=== PATIENT | female | born 2000 | race Caucasian/White ===

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

== ENCOUNTER 2022-03-29 20:09 | Emergency (ER) | payer OTHER ==
[2022-03-29] MEDS ORDERED: SODIUM CHLORIDE 0.9% 1,000 ML IV STA (20:49)
--- NOTE | 2022-03-29 20:56 | ED ---
Female Urogenital HPI - General Chief complaint: Vaginal Bleeding Stated complaint: Vag bleed Time Seen by Provider: 03/29/22 20:45 Source: patient, RN notes reviewed Mode of arrival: ambulatory Limitations: no limitations - History of Present Illness Initial comments: This is a pleasant 21-year-old female who presents to emergency department complaining of vaginal bleeding. Patient states this started a few days ago. She states it heavier than her normal menses. She states she is passing large clots. She was seen at [facility] yesterday and had blood work done. Patient states the bleeding is now worse than yesterday. She is d escribing some mild cramping in the pelvis, otherwise no significant pain. Patient states she had testing done there yesterday which was negative. Patient states she also received an injection of a hormone to stop the bleeding. No headache, no fever or chills, no changes in vision or hearing, no sore throat or difficulty with speech, no neck pain, no chest pain or shortness of breath, no abdominal pain, no nausea or vomiting, no changes in urination or bowel movements, no numbness or tingling, no extremity pain, no skin rashes or lesions. Past medical, surgical, social, and family history reviewed. Patient has no symptoms of syncope or presyncope. MD Complaint: vaginal bleeding - Related Data Home Medications Medication Instructions Recorded Confirmed No Known Home Medications 11/24/21 11/26/21 Allergies Allergy/AdvReac Type Severity Reaction Status Date / Time adhesive AdvReac Itching Verified 03/29/22 20:44 Review of Systems ROS Statement: Those systems with pertinent positive or pertinent negative responses have been documented in the HPI. ROS Other: All systems not noted in ROS Statement are negative. Past Medical History Past Medical History: GERD/Reflux Additional Past Medical History / Comment(s): CURRENT: ABD PAIN. History of Any Multi-Drug Resistant Organisms: None Reported Past Surgical History: No Surgical Hx Reported Additional Past Surgical History / Comment(s): WISDOM TEETH REMOVED Additional Past Anesthesia/Blood Transfusion Reaction / Comment(s): NEVER HAD GENERAL ANESTHIA Past Psychological History: Anxiety, Depression Smoking Status: Never smoker Past Alcohol Use History: None Reported Past Drug Use History: None Reported - Past Family History Mother Family Medical History: No Reported History General Exam Limitations: no limitations General appearance: alert, in no apparent distress Head exam: Present: atraumatic, normocephalic, normal inspection Eye exam: Present: normal appearance, PERRL, EOMI. Absent: scleral icterus, conjunctival injection, periorbital swelling ENT exam: Present: normal exam, mucous membranes moist Neck exam: Present: normal inspection. Absent: tenderness, meningismus, lymphadenopathy Respiratory exam: Present: normal lung sounds bilaterally. Absent: respiratory distress, wheezes, rales, rhonchi, stridor Cardiovascular Exam: Present: regular rate, normal rhythm, normal heart sounds. Absent: systolic murmur, diastolic murmur, rubs, gallop, clicks GI/Abdominal exam: Present: soft, normal bowel sounds. Absent: distended, tenderness, guarding, rebound, rigid Extremities exam: Present: normal inspection, full ROM, normal capillary refill. Absent: tenderness, pedal edema, joint swelling, calf tenderness Back exam: Present: normal inspection Neurological exam: Present: alert, oriented X3, CN II-XII intact Psychiatric exam: Present: normal affect, normal mood Skin exam: Present: warm, dry, intact, normal color. Absent: rash Course Vital Signs 03/29/22 20:41 Temperature 98.2 F Pulse Rate 86 Respiratory 20 Rate Blood Pressure 122/84 O2 Sat by Pulse 99 Oximetry - Reevaluation(s) Reevaluation #1: 03/29/22 22:53 Patient is reevaluated and is hemodynamic stable. Essentially has no complaints. Medical Decision Making - Medical Decision Making Hemodynamically stable 21-year-old female presents for reevaluation of vaginal bleeding. It sounds like she had an injection of medroxyprogesterone at [facility] yesterday. Predictably, bleeding is worse today. We'll order a general lab work and a pelvic ultrasound. Prexy testing. Ultrasound shows a thickened endometrium and a left ovarian cyst. Right ovary was not noted. Good arterial flow to the left ovary. Given the patient's symptomology of cramping. I think this is inspected after having a dose of medroxyprogesterone. All findings discussed with the patient. Treatment plan discussed. Patient was told to return to the ER for any signs or symptoms worsen. Told to return immediately if any other problems arise. All questions answered. Treatment plan discussed. Patient in agreement Every effort has been made to ensure accuracy of this dictation. However, due to the limitations of electronic medical records and dictation devices, errors in charting still occur. [employer] Dr. Landin - Lab Data Result diagrams: 03/29/22 21:48 03/29/22 21:48 Lab Results 03/29/22 03/29/22 Range/Units 21:48 21:48 WBC 8.3 (4.0-11.0) k/uL RBC 3.84 (3.80-5.40) m/uL Hgb 11.9 (11.4-16.0) gm/dL Hct 33.9 L (34.0-46.0) % MCV 88.2 (80.0-100.0) fL MCH 31.0 (25.0-35.0) pg MCHC 35.1 (31.0-37.0) g/dL RDW 12.6 (11.5-15.5) % Plt Count 268 (150-450) k/uL MPV 8.8 Neutrophils % 70 % Lymphocytes % 21 % Monocytes % 7 % Eosinophils % 0 % Basophils % 0 % Neutrophils # 5.8 (1.3-7.7) k/uL Lymphocytes # 1.7 (1.0-4.8) k/uL Monocytes # 0.6 (0-1.0) k/uL Eosinophils # 0.0 (0-0.7) k/uL Basophils # 0.0 (0-0.2) k/uL Sodium 138 (137-145) mmol/L Potassium 4.1 (3.5-5.1) mmol/L Chloride 104 (98-107) mmol/L Carbon Dioxide 23 (22-30) mmol/L Anion Gap 11 mmol/L BUN 10 (7-17) mg/dL Creatinine 1.02 (0.52-1.04) mg/dL Est GFR (CKD-EPI)AfAm >90 (>60 ml/min/1.73 sqM) Est GFR (CKD-EPI)NonAf 80 (>60 ml/min/1.73 sqM) Glucose 85 (74-99) mg/dL Calcium 8.9 (8.4-10.2) mg/dL Total Bilirubin 1.7 H (0.2-1.3) mg/dL AST 28 (14-36) U/L ALT 16 (4-34) U/L Alkaline Phosphatase 60 (38-126) U/L Total Protein 5.8 L (6.3-8.2) g/dL Albumin 4.0 (3.5-5.0) g/dL HCG, Qual Not Detected Disposition Clinical Impression: Menorrhagia, Ovarian cyst, left Disposition: HOME SELF-CARE Condition: Good Instructions (If sedation given, give patient instructions): Menorrhagia (ED), Ovarian Cyst (ED) Additional Instructions: Follow-up with your regular physician as directed. Return to the ER immediately if any symptoms worsen, new symptoms arise, or any other problems develop. Is patient prescribed a controlled substance at d/c from ED?: No Referrals: Mariluz Shah MD [STAFF PHYSICIAN] - As Soon As Possible Time of Disposition: 22:54
--- NOTE | 2022-03-29 21:40 | US ---
EXAMINATION TYPE: US transvaginal DATE OF EXAM: 03/29/2022 COMPARISON: NONE CLINICAL HISTORY: Dysfunctional uterine bleeding. Abnormally heavy period, patient on control TECHNIQUE: Transvaginal ER exam Date of LMP: 03/25/2022 EXAM MEASUREMENTS: Uterus: 7.9 x 3.6 x 3.9 cm Endometrial Stripe: 1.0 cm Right Ovary: not seen Left Ovary: 5.4 x 4.4 x 4.6 cm 1. Uterus: anteverted 2. Endometrium: thickened 3. Right Ovary: not seen 4. Left Ovary: 4.6 x 4.0 x 3.8cm cyst Spectral, color and waveform doppler imaging shows good arterial flow within the left ovary, unable to obtain venous flow within the left ovary. 5. Bilateral Adnexa: wnl 6. Posterior cul-de-sac: free fluid IMPRESSION: There is large cyst on the left ovary. No solid adnexal mass. Right ovary not seen. No sign of ovaria n torsion. Mild free fluid in the pelvis.
[2022-03-29 22:20] LABS: Basophils % (A) 0 %; Eosinophils % (A) 0 %; HCT 33.9 % (34.0-46.0); HGB 11.9 gm/dL (11.4-16.0); Lymphocytes # (A) 1.7 k/uL (1.0-4.8); Lymphocytes % (A) 21 %; MCHC 35.1 g/dL (31.0-37.0); MCV 88.2 fL (80.0-100.0); Mean Platelet Volume 8.8; Monocytes # (A) 0.6 k/uL (0-1.0); Monocytes % (A) 7 %; Neutrophils # (A) 5.8 k/uL (1.3-7.7); Neutrophils % (A) 70 %; Platelet Count 268 k/uL (150-450); RBC 3.84 m/uL (3.80-5.40); RDW 12.6 % (11.5-15.5); WBC 8.3 k/uL (4.0-11.0)
[2022-03-29 22:27] LABS: HCG,Qualitative Serum Not Detected
[2022-03-29 22:31] LABS: ALT 16 U/L (4-34); AST 28 U/L (14-36); African American GFR (CKD) >90 (>60 ml/min/1.73 sqM); Alkaline Phosphatase 60 U/L (38-126); Anion Gap 11 mmol/L; Blood Urea Nitrogen 10 mg/dL (7-17); Calcium 8.9 mg/dL (8.4-10.2); Carbon Dioxide 23 mmol/L (22-30); Chloride 104 mmol/L (98-107); Glucose 85 mg/dL (74-99); Non-African American GFR(CKD) 80 (>60 ml/min/1.73 sqM); Potassium 4.1 mmol/L (3.5-5.1); Sodium 138 mmol/L (137-145); Total Bilirubin 1.7 mg/dL (0.2-1.3); Total Protein 5.8 g/dL (6.3-8.2)
[2022-03-29 23:05] VITALS: BP 118/65; PULSE 79; RESP 18; TEMP 97.4
== END 2022-03-29 23:03 | disposition home or self-care (01) ==
LOC: EC 20:09 → SUPCPDRO 20:09 → EC 23:03
DX: N92.0 Excessive and frequent menstruation with regular cycle (principal); N83.202 Unspecified ovarian cyst, left side; K21.9 Gastro-esophageal reflux disease without esophagitis; Z91.048 Other nonmedicinal substance allergy status
CPT/HCPCS: 36415; 76830; 80053; 84443; 84703; 85025; 93976; 99284

== ENCOUNTER 2022-05-12 10:42 | Emergency (ER) | payer OTHER ==
[2022-05-12 10:49] VITALS: RESP 18; TEMP 98.5
--- NOTE | 2022-05-12 11:22 | ED ---
Female Urogenital HPI - General Chief complaint: Vaginal Bleeding Stated complaint: revisit -vaginal bleeding Time Seen by Provider: 05/12/22 10:44 Source: patient, RN notes reviewed Mode of arrival: ambulatory Limitations: no limitations - History of Present Illness Initial comments: This is a 21-year-old female who presents to the emergency department for vaginal bleeding. States that she has had heavy bleeding over the last 6 weeks. Prior to this, she never had problems with her periods. She saw Jayro Munoz shaper hand at [place] [employer] [facility] today who instructed her to come to the emergency department for a D&C according to the patient. She was evaluated here on 03/29/2022 for vaginal bleeding and pelvic pain/cramping, and the day prior to that had a shot of medroxyprogesterone at [facility]. She states that this worked for 1-2 days and the bleeding then returned, however during her visit on 03/29, she said that it made the bleeding worse. She is currently wearing a pad and tampon at the same time and changing them more than once an hour. She did have blood work done a month ago at her RADAR ENGINEER's office and was told that her hemoglobin levels were very low, and she has been taking iron since. She did have testing on her thyroid as well, which she was told was normal. She is unsure what other testing may have been done. Additionally, she had an ultrasound at the coordinator of genetic services's office today, which she was told was n ormal. She started the NuvaRing when her symptoms began, and she had this removed earlier today at her RADAR ENGINEER's office, and she states that blood went everywhere, which was the largest reason she came to the emergency department today. In addition to the NuvaRing, she was on a ten-day course of pr ogesterone, which she states was also not helpful. She has mild left sided abdominal pain and associated nausea. Also states that she feels fairly weak. With regards to her family history, she states that her mom never had a period, and is unsure why. She is unaware of any other family history. Denies any fevers, chills, sore throat, cough, dyspnea, chest pain, palpitations, vomiting, diarrhea, back pain, or headaches. MD Complaint: vaginal bleeding Onset/Timin -: month(s) Patient : No - Related Data Home Medications Medication Instructions Recorded Confirmed Cariprazine HCl [Vraylar] 1.5 mg PO DAILY@1130 05/12/22 05/12/22 Ferrous Sulfate [Iron (65 MG 325 mg PO DAILY@1130 05/12/22 05/12/22 Elemental)] Multivitamins, Thera [Multivitamin 1 tab PO DAILY@1130 05/12/22 05/12/22 (formulary)] norgestimate-ethinyl estradioL 1 tab PO DIRECTED 05/12/22 05/12/22 [Sprintec 28 Day Tablet] Previous Rx's Medication Instructions Recorded Tranexamic Acid 1,300 mg PO TID 5 Days #30 tablet 05/12/22 Allergies Allergy/AdvReac Type Severity Reaction Status Date / Time adhesive AdvReac Itching Verified 05/12/22 11:44 Review of Systems ROS Statement: Those systems with pertinent positive or pertinent negative responses have been documented in the HPI. ROS Other: All systems not noted in ROS Statement are negative. Past Medical History Past Medical History: GERD/Reflux Additional Past Medical History / Comment(s): CURRENT: ABD PAIN. History of Any Multi-Drug Resistant Organisms: None Reported Past Surgical History: No Surgical Hx Reported Additional Past Surgical History / Comment(s): WISDOM TEETH REMOVED Additional Past Anesthesia/Blood Transfusion Reaction / Comment(s): NEVER HAD GENERAL ANESTHIA Past Psychological History: Anxiety, Depression Smoking Status: Never smoker Past Alcohol Use History: None Reported Past Drug Use History: None Reported - Past Family History Mother Family Medical History: No Reported History General Exam Limitations: no limitations General appearance: alert, in no apparent distress Head exam: Present: atraumatic, normocephalic, normal inspection Respiratory exam: Present: normal lung sounds bilaterally. Absent: respiratory distress, wheezes, rales, rhonchi, stridor Cardiovascular Exam: Present: regular rate, normal rhythm, normal heart sounds. Absent: systolic murmur, diastolic murmur, rubs, gallop, clicks GI/Abdominal exam: Present: soft, tenderness (mild left mid abdomen), normal bowel sounds. Absent: distended, guarding, rebound, rigid Neurological exam: Present: alert, oriented X3, CN II-XII intact Psychiatric exam: Present: normal affect, normal mood Skin exam: Present: warm, dry, intact, normal color. Absent: rash Course Vital Signs 05/12/22 05/12/22 05/12/22 10:47 16:58 17:11 Temperature 98.5 F Pulse Rate 99 75 72 Respiratory 18 18 18 Rate Blood Pressure 125/77 121/73 130/82 O2 Sat by Pulse 100 100 99 Oximetry Medical Decision Making - Medical Decision Making This is a 21 year old female who presents to the emergency department for vaginal bleeding. Lab work obtained and found to be largely nonactionable. Her hemoglobin was slightly low at 10.6. Urine test negative. Urinalysis negative for any signs of infection. Transvaginal ultrasound obtained, and on my interpretation I am unable to identify any uterine masses or right ovarian cysts. I was unable to visualize the left ovary. I spoke with Dr. Frye, on- call RADAR ENGINEER, who does not believe that proceeding with a D&C at this time is appropriate given the patient's age and the fact that she is stable. Dr. Frye is also not familiar with this patient. Jayro Munoz, the patient's shaper hand also spoke with Dr. Frye, and is agreeable to avoiding a D&C at this time. I am also in agreement with this due to the patient's age and the fact that she is hemodynamically stable. Given that she has tried both the ring and progeste noam, discussed that we can try Lysteda. She was advised that this is not a hormone, and does pose a risk for blood clots which can lead to a heart attack and stroke. She does express understanding and is willing to accept these risks. I did advise that if she develops any chest pain, shortness of breath, or swelling in any of the extremities, she should stop this immediately and return to the emergency department. I did also order additional blood work to look at her hormone levels, which I advised will not be back today. She will need to call the hospital in the next couple of days to follow-up on these results. Advised Motrin and Tylenol as needed for any pain relief. She will follow up with her RADAR ENGINEER this week. She was given Dr. Frye's information as well if she is unable to see Dr. Inman in a timely manner. Return precautions reviewed in depth, the patient is instructed to return to the emergency department with any new, worsening, or concerning symptoms. Patient verbalized understanding. This case was discussed in detail with the attending ED physician. Presentation, findings, and treatment plan discussed in detail as well. - Lab Data Result diagrams: 05/12/22 11:11 05/12/22 11:11 Lab Results 05/12/22 05/12/22 05/12/22 Range/Units 11:11 11:11 11:11 WBC 5.6 (4.0-11.0) k/uL RBC 3.89 (3.80-5.40) m/uL Hgb 10.6 L (11.4-16.0) gm/dL Hct 32.4 L (34.0-46.0) % MCV 83.3 (80.0-100.0) fL MCH 27.2 (25.0-35.0) pg MCHC 32.7 (31.0-37.0) g/dL RDW 13.3 (11.5-15.5) % Plt Count 289 (150-450) k/uL MPV 8.6 Neutrophils % 69 % Lymphocytes % 22 % Monocytes % 6 % Eosinophils % 1 % Basophils % 0 % Neutrophils # 3.8 (1.3-7.7) k/uL Lymphocytes # 1.2 (1.0-4.8) k/uL Monocytes # 0.4 (0-1.0) k/uL Eosinophils # 0.0 (0-0.7) k/uL Basophils # 0.0 (0-0.2) k/uL Hypochromasia Marked Poikilocytosis Slight PT 10.7 (9.0-12.0) sec INR 1.0 (<1.2) APTT 23.7 (22.0-30.0) sec Sodium (137-145) mmol/L Potassium (3.5-5.1) mmol/L Chloride (98-107) mmol/L Carbon Dioxide (22-30) mmol/L Anion Gap mmol/L BUN (7-17) mg/dL Creatinine (0.52-1.04) mg/dL Est GFR (CKD-EPI)AfAm (>60 ml/min/1.73 sqM) Est GFR (CKD-EPI)NonAf (>60 ml/min/1.73 sqM) Glucose (74-99) mg/dL Calcium (8.4-10.2) mg/dL Total Bilirubin (0.2-1.3) mg/dL AST (14-36) U/L ALT (4-34) U/L Alkaline Phosphatase (38-126) U/L Total Protein (6.3-8.2) g/dL Albumin (3.5-5.0) g/dL TSH (0.465-4.680) mIU/L Cortisol ug/dL Urine Color Yellow Urine Appearance Clear (Clear) Urine pH 6.0 (5.0-8.0) Ur Specific [place] 1.017 (1.001-1.035) Urine Protein Negative (Negative) Urine Glucose (UA) Negative (Negative) Urine Ketones Negative (Negative) Urine Blood Large H (Negative) Urine Nitrite Negative (Negative) Urine Bilirubin Negative (Negative) Urine Urobilinogen <2.0 (<2.0) mg/dL Ur Leukocyte Esterase Trace H (Negative) Urine RBC 15 H (0-5) /hpf Urine WBC 10 H (0-5) /hpf Ur Squamous Epith Cells 3 (0-4) /hpf Urine Bacteria Rare H (None) /hpf Urine Mucus Occasional H (None) /hpf Urine HCG, Qual (Not Detectd) Blood Type Blood Type Recheck Bld Type Recheck Status Antibody Screen Spec Expiration Date 05/12/22 05/12/22 05/12/22 Range/Units 11:11 11:11 11:11 WBC (4.0-11.0) k/uL RBC (3.80-5.40) m/uL Hgb (11.4-16.0) gm/dL Hct (34.0-46.0) % MCV (80.0-100.0) fL MCH (25.0-35.0) pg MCHC (31.0-37.0) g/dL RDW (11.5-15.5) % Plt Count (150-450) k/uL MPV Neutrophils % % Lymphocytes % % Monocytes % % Eosinophils % % Basophils % % Neutrophils # (1.3-7.7) k/uL Lymphocytes # (1.0-4.8) k/uL Monocytes # (0-1.0) k/uL Eosinophils # (0-0.7) k/uL Basophils # (0-0.2) k/uL Hypochromasia Poikilocytosis PT (9.0-12.0) sec INR (<1.2) APTT (22.0-30.0) sec Sodium 138 (137-145) mmol/L Potassium 4.3 (3.5-5.1) mmol/L Chloride 109 H (98-107) mmol/L Carbon Dioxide 24 (22-30) mmol/L Anion Gap 5 mmol/L BUN 8 (7-17) mg/dL Creatinine 0.67 (0.52-1.04) mg/dL Est GFR (CKD-EPI)AfAm >90 (>60 ml/min/1.73 sqM) Est GFR (CKD-EPI)NonAf >90 (>60 ml/min/1.73 sqM) Glucose 78 (74-99) mg/dL Calcium 8.7 (8.4-10.2) mg/dL Total Bilirubin 1.7 H (0.2-1.3) mg/dL AST 18 (14-36) U/L ALT 12 (4-34) U/L Alkaline Phosphatase 38 (38-126) U/L Total Protein 5.9 L (6.3-8.2) g/dL Albumin 3.8 (3.5-5.0) g/dL TSH 0.961 (0.465-4.680) mIU/L Cortisol ug/dL Urine Color Urine Appearance (Clear) Urine pH (5.0-8.0) Ur Specific [place] (1.001-1.035) Urine Protein (Negative) Urine Glucose (UA) (Negative) Urine Ketones (Negative) Urine Blood (Negative) Urine Nitrite (Negative) Urine Bilirubin (Negative) Urine Urobilinogen (<2.0) mg/dL Ur Leukocyte Esterase (Negative) Urine RBC (0-5) /hpf Urine WBC (0-5) /hpf Ur Squamous Epith Cells (0-4) /hpf Urine Bacteria (None) /hpf Urine Mucus (None) /hpf Urine HCG, Qual Not Detected (Not Detectd) Blood Type B Positive Blood Type Recheck B Pos Bld Type Recheck Status No Antibody Screen NEGATIVE Spec Expiration Date 05/15/2022 - 231005/12/22 Range/Units 11:11 WBC (4.0-11.0) k/uL RBC (3.80-5.40) m/uL Hgb (11.4-16.0) gm/dL Hct (34.0-46.0) % MCV (80.0-100.0) fL MCH (25.0-35.0) pg MCHC (31.0-37.0) g/dL RDW (11.5-15.5) % Plt Count (150-450) k/uL MPV Neutrophils % % Lymphocytes % % Monocytes % % Eosinophils % % Basophils % % Neutrophils # (1.3-7.7) k/uL Lymphocytes # (1.0-4.8) k/uL Monocytes # (0-1.0) k/uL Eosinophils # (0-0.7) k/uL Basophils # (0-0.2) k/uL Hypochromasia Poikilocytosis PT (9.0-12.0) sec INR (<1.2) APTT (22.0-30.0) sec Sodium (137-145) mmol/L Potassium (3.5-5.1) mmol/L Chloride (98-107) mmol/L Carbon Dioxide (22-30) mmol/L Anion Gap mmol/L BUN (7-17) mg/dL Creatinine (0.52-1.04) mg/dL Est GFR (CKD-EPI)AfAm (>60 ml/min/1.73 sqM) Est GFR (CKD-EPI)NonAf (>60 ml/min/1.73 sqM) Glucose (74-99) mg/dL Calcium (8.4-10.2) mg/dL Total Bilirubin (0.2-1.3) mg/dL AST (14-36) U/L ALT (4-34) U/L Alkaline Phosphatase (38-126) U/L Total Protein (6.3-8.2) g/dL Albumin (3.5-5.0) g/dL TSH (0.465-4.680) mIU/L Cortisol 10 ug/dL Urine Color Urine Appearance (Clear) Urine pH (5.0-8.0) Ur Specific [place] (1.001-1.035) Urine Protein (Negative) Urine Glucose (UA) (Negative) Urine Ketones (Negative) Urine Blood (Negative) Urine Nitrite (Negative) Urine Bilirubin (Negative) Urine Urobilinogen (<2.0) mg/dL Ur Leukocyte Esterase (Negative) Urine RBC (0-5) /hpf Urine WBC (0-5) /hpf Ur Squamous Epith Cells (0-4) /hpf Urine Bacteria (None) /hpf Urine Mucus (None) /hpf Urine HCG, Qual (Not Detectd) Blood Type Blood Type Recheck Bld Type Recheck Status Antibody Screen Spec Expiration Date - Radiology Data Radiology results: report reviewed, image reviewed Disposition Clinical Impression: Dysfunctional uterine bleeding Disposition: HOME SELF-CARE Instructions (If sedation given, give patient instructions): Abnormal (Dysfunctional) Uterine Bleeding (ED), Menorrhagia (ED) Additional Instructions: Return to the emergency department with any new, worsening, or concerning symptoms. Take the tranexamic acid as prescribed for 5 days. The brand name for this is Lysteda. Stop taking this immediately if you develop swelling in the extremities, chest pain, or shortness of breath. Please follow-up with your RADAR ENGINEER in the next couple of days. I listed the RADAR ENGINEER here down below if you are unable to follow up with Dr. Inman in a timely manner. Follow up with your primary care provider in 1-2 days. Prescriptions: Tranexamic Acid 1,300 mg PO TID 5 Days #30 tablet Is patient prescribed a controlled substance at d/c from ED?: No Referrals: Cordell Hurley NPC [REFERRING] - 1-2 days Payal Frye DO [Doctor of Osteopathic Medicine] - 1-2 days
[2022-05-12 11:31] LABS: Basophils % (A) 0 %; Eosinophils % (A) 1 %; HCT 32.4 % (34.0-46.0); HGB 10.6 gm/dL (11.4-16.0); Hypochromasia Marked; Lymphocytes # (A) 1.2 k/uL (1.0-4.8); Lymphocytes % (A) 22 %; MCH 27.2 pg (25.0-35.0); MCHC 32.7 g/dL (31.0-37.0); MCV 83.3 fL (80.0-100.0); Mean Platelet Volume 8.6; Monocytes # (A) 0.4 k/uL (0-1.0); Monocytes % (A) 6 %; Neutrophils # (A) 3.8 k/uL (1.3-7.7); Neutrophils % (A) 69 %; Platelet Count 289 k/uL (150-450); Poikilocytosis Slight; RBC 3.89 m/uL (3.80-5.40); RDW 13.3 % (11.5-15.5); WBC 5.6 k/uL (4.0-11.0)
[2022-05-12 11:41] LABS: ALT 12 U/L (4-34); AST 18 U/L (14-36); African American GFR (CKD) >90 (>60 ml/min/1.73 sqM); Albumin 3.8 g/dL (3.5-5.0); Alkaline Phosphatase 38 U/L (38-126); Anion Gap 5 mmol/L; Blood Urea Nitrogen 8 mg/dL (7-17); Calcium 8.7 mg/dL (8.4-10.2); Carbon Dioxide 24 mmol/L (22-30); Chloride 109 mmol/L (98-107); Glucose 78 mg/dL (74-99); Non-African American GFR(CKD) >90 (>60 ml/min/1.73 sqM); Potassium 4.3 mmol/L (3.5-5.1); Sodium 138 mmol/L (137-145); Total Bilirubin 1.7 mg/dL (0.2-1.3); Total Protein 5.9 g/dL (6.3-8.2)
[2022-05-12 11:51] LABS: Appearance,Urine Clear (Clear); Bacteria,Urine Rare /hpf; Bilirubin,Urine Negative (Negative); Blood,Urine Large (Negative); Color,Urine Yellow; Glucose,Urine (UA) Negative (Negative); Ketones,Urine Negative (Negative); Leukocyte Esterase,Urine Trace (Negative); Mucus,Urine Occasional /hpf; Nitrite,Urine Negative (Negative); Protein,Urine Negative (Negative); RBC,Urine 15 /hpf (0-5); Specific Gravity,Urine 1.017 (1.001-1.035); Squamous Epithelial Cell,Urine 3 /hpf (0-4); Urobilinogen,Urine <2.0 mg/dL (<2.0); WBC,Urine 10 /hpf (0-5)
[2022-05-12 12:30] LABS: Partial Thromboplastin Time 23.7 sec (22.0-30.0); Prothrombin Time 10.7 sec (9.0-12.0)
--- NOTE | 2022-05-12 14:02 | US ---
EXAMINATION TYPE: US transvaginal DATE OF EXAM: 05/12/2022 COMPARISON: 03/29/2022 CLINICAL HISTORY: 21-year-old female Vaginal bleeding and pelvic pain. Bleeding and cramping x 6 week s TECHNIQUE: Transvaginal ER exam. Date of LMP: Couple months ago FINDINGS: EXAM MEASUREMENTS: Uterus: 7.3 x 3.3 x 4.3 cm Endometrial Stripe: 1.2 cm Right Ovary: 2.6 x 1.7 x 1.5 cm for volume of 3.4 mL 1. Uterus: anteverted and otherwise within normal limits 2. Endometrium: Should correspond to the secretory phase. 3. Right Ovary: wnl, some follicular changes present. 4. Left Ovary: not seen Spectral, color and waveform doppler imaging shows good arterial flow within the right ovary, unabl e to obtain venous flow within the right ovary. Possibly due to small size. 5. Bilateral Adnexa: wnl 6. Posterior cul-de-sac: free fluid IMPRESSION: 1. Unable to visualize the left ovary. 2. Small right ovary with normal follicular change. The matrix repairer was unable to obtain venous flow within the right ovary, probably due to small size. Overall morphology does not suggest ovarian torsi on. 3. Endometrial stripe thickness of 1.2 cm should correspond to the secretory phase.
[2022-05-12 17:12] VITALS: BP 130/82; PULSE 72
[2022-05-13 00:10] LABS: Progesterone 0.1 ng/mL
[2022-05-13 04:52] LABS: Estradiol <5.0 pg/mL; Luteinizing Hormone <0.3 mIU/mL
== END 2022-05-12 17:12 | disposition home or self-care (01) ==
LOC: EC 10:42
DX: N93.8 Other specified abnormal uterine and vaginal bleeding (principal); F41.9 Anxiety disorder, unspecified; F32.A Depression, unspecified; K21.9 Gastro-esophageal reflux disease without esophagitis; Z91.048 Other nonmedicinal substance allergy status; Z79.899 Other long term (current) drug therapy
CPT/HCPCS: 36415; 76830; 80053; 81001; 81025; 82533; 82627; 82670; 83002; 83498; 84144; 84443; 85025; 85246; 85610; 85730; 86850; 86900; 86901; 93976; 99284

== ENCOUNTER 2022-07-20 10:35 | Emergency (ER) | payer OTHER ==
[2022-07-20 10:40] VITALS: TEMP 97.4
[2022-07-20] MEDS ORDERED: diphenhydrAMINE 50 MG/ML 1 ML VIAL IVP STA (10:50)
[2022-07-20] MEDS ORDERED: methylPREDNISolone SOD SUCCI 125 MG/2 ML VIAL IV STA (10:50)
[2022-07-20] MEDS ORDERED: SODIUM CHLORIDE 0.9% 1,000 ML IV STA (10:50)
[2022-07-20] MEDS ORDERED: FAMOTIDINE 20 MG/2 ML VIAL IV STA (10:50)
--- NOTE | 2022-07-20 11:12 | ED ---
General Adult HPI - General Chief complaint: Skin/Abscess/Foreign Body Stated complaint: RASH ON FACE Time Seen by Provider: 07/20/22 10:43 Source: patient Mode of arrival: ambulatory Limitations: no limitations - History of Present Illness Initial comments: Patient is a 22-year-old female who presents to the emergency department for rash on face. Patient noticed swelling of her cheeks and around her eyes yesterday. She reports itchiness on her face without any pain. No fevers, chills, chest pain, shortness of breath, throat swelling. No eye pain, vision changes, upper respiratory symptoms, fever, chills. No history of ALLERGIES or ALLERGIC reaction. No new medications. Patient does admit to using a foundation on her face yesterday which she has only used once before a long time ago. - Related Data Home Medications Medication Instructions Recorded Confirmed Cariprazine HCl [Vraylar] 1.5 mg PO DAILY@1130 05/12/22 05/12/22 Ferrous Sulfate [Iron (65 MG 325 mg PO DAILY@1130 05/12/22 05/12/22 Elemental)] Multivitamins, Thera [Multivitamin 1 tab PO DAILY@1130 05/12/22 05/12/22 (formulary)] norgestimate-ethinyl estradioL 1 tab PO DIRECTED 05/12/22 05/12/22 [Sprintec 28 Day Tablet] Previous Rx's Medication Instructions Recorded Tranexamic Acid 1,300 mg PO TID 5 Days #30 tablet 05/12/22 diphenhydrAMINE [Benadryl] 50 mg PO BID PRN #6 capsule 07/20/22 Allergies Allergy/AdvReac Type Severity Reaction Status Date / Time adhesive AdvReac Itching Verified 07/20/22 10:40 Review of Systems ROS Statement: Those systems with pertinent positive or pertinent negative responses have been documented in the HPI. ROS Other: All systems not noted in ROS Statement are negative. Past Medical History Past Medical History: GERD/Reflux Additional Past Medical History / Comment(s): CURRENT: ABD PAIN. History of Any Multi-Drug Resistant Organisms: None Reported Past Surgical History: No Surgical Hx Reported Additional Past Surgical History / Comment(s): WISDOM TEETH REMOVED Additional Past Anesthesia/Blood Transfusion Reaction / Comment(s): NEVER HAD GENERAL ANESTHIA Past Psychological History: Anxiety, Depression Smoking Status: Vaper Past Alcohol Use History: None Reported Past Drug Use History: None Reported - Past Family History Mother Family Medical History: No Reported History General Exam Limitations: no limitations General appearance: alert, in no apparent distress Head exam: Present: atraumatic, normocephalic. Absent: normal inspection (Swelling of bilateral cheeks and periorbital regions without tongue or lip inv olvement. Mild erythema. No warmth, tenderness, blanching) Eye exam: Present: normal appearance, PERRL, EOMI. Absent: scleral icterus, conjunctival injection, periorbital tenderness ENT exam: Present: normal oropharynx, TM's normal bilaterally Neck exam: Present: normal inspection. Absent: tenderness, meningismus, lympha denopathy Respiratory exam: Present: normal lung sounds bilaterally. Absent: respiratory distress, wheezes, rales, rhonchi, stridor Cardiovascular Exam: Present: regular rate, normal rhythm, normal heart sounds. Absent: systolic murmur, diastolic murmur, rubs, gallop, clicks Neurological exam: Present: alert, oriented X3, CN II-XII intact Psychiatric exam: Present: normal affect, normal mood Skin exam: Present: warm, dry, intact, normal color. Absent: rash Course Vital Signs 07/20/22 07/20/22 10:37 12:54 Temperature 97.4 F L Pulse Rate 82 66 Respiratory 20 16 Rate Blood Pressure 126/85 116/74 O2 Sat by Pulse 99 100 Oximetry Medical Decision Making - Medical Decision Making Was pt. sent in by a medical professional or institution (, PA, THEATER COMPANY PRODUCER, urgent care, hospital, or ch[facility]...) When possible be specific @ -No Did you speak to anyone other than the patient for history (EMS, parent, family, police, friend...)? What history was obtained from this source @ -No Did you review nursing and triage notes (agree or disagree)? Why? @ -I reviewed and agree with nursing and triage notes Were old charts reviewed (outside hosp., previous admission, EMS record, old EKG, old radiological studies, urgent care reports/EKG's, ch[facility] records)? Report findings @ -No old charts were reviewed Differential Diagnosis (chest pain, altered mental status, abdominal pain women, abdominal pain men, vaginal bleeding, weakness, fever, dyspnea, syncope, headache, dizziness, GI bleed, back pain, seizure, CVA, palpatations, mental health)? @ -Cellulitis, ALLERGIC reaction, angioedema EKG interpreted by me (3pts min.). @ -As above X-rays interpreted by me (1pt min.). @ -None done CT interpreted by me (1pt min.). @ -None done U/S interpreted by me (1pt. min.). @ -None done What testing was considered but not performed or refused? (CT, X-rays, U/S, labs)? Why? @ -Considered chest x-ray however patient does not have shortness of breath or wheezing What meds were considered but not given or refused? Why? @ -None Did you discuss the management of the patient with other professionals (professionals i.e. , PA, [employer] PRODUCER, lab, RT, psych nurse, psych social worker, building serviceman, teacher, admitting officer, case assembler)? Give summary @ -No Was smoking cessation discussed for >3mins.? @ -No Was critical care preformed (if so, how long)? @ -No Were there social determinants of health that impacted care today? How? (Homelessness, low income, unemployed, alcoholism, drug addiction, transportation, low edu. Level, literacy, decrease access to med. care, custodial, rehab)? @ -No Was there de-escalation of care discussed even if they declined (Discuss DNR or withdrawal of care, Hospice)? DNR status @ -No What co-morbidities impacted this encounter? (DM, HTN, Smoking, COPD, CAD, Cancer, CVA, ARF, Chemo, Hep., AIDS, mental health diagnosis, sleep apnea, morbid obesity)? @ -None Was patient admitted / discharged? Hospital course, mention meds given and route, prescriptions, significant lab abnormalities, going to OR and other pertinent info. @ -Discharged. Patient treated for ALLERGIC reaction with ALLERGY cocktail. Swelling improved, no airway involvement, no respiratory distress. Undiagnosed new problem with uncertain prognosis? @ -No Drug Therapy requiring intensive monitoring for toxicity (Heparin, Nitro, Insulin, Cardizem)? @ -No Were any procedures done? @ -No Diagnosis/symptom? @ ALLERGIC reaction Acute, or Chronic, or Acute on Chronic? @ -Acute Uncomplicated (without systemic symptoms) or Complicated (systemic symptoms)? @ -Uncomplicated Side effects of treatment? @ -No Exacerbation, Progression, or Severe Exacerbation? @ -No Poses a threat to life or bodily function? How? (Chest pain, [place], [place], pneumonia, PE, COPD, DKA, ARF, appy, cholecystitis, CVA, Diverticulitis, Homicidal, Suicidal, threat to staff... and all critical care pts) @ -No Dr. Sánchez is my attending Disposition Clinical Impression: Allergic reaction Disposition: HOME SELF-CARE Condition: Good Instructions (If sedation given, give patient instructions): General Allergic Reaction (ED) Additional Instructions: Take medication as directed. Follow-up with primary care provider in one to 2 days. Return to the emergency department experience new, concerning, or worsening symptoms. Prescriptions: diphenhydrAMINE [Benadryl] 50 mg PO BID PRN #6 capsule PRN Reason: Allergic Reaction Is patient prescribed a controlled substance at d/c from ED?: No Referrals: None,Stated [REFERRING] - 1-2 days
[2022-07-20 12:57] VITALS: BP 116/74; PULSE 66; RESP 16
== END 2022-07-20 13:21 | disposition home or self-care (01) ==
LOC: EC 10:35
DX: T78.40XA Allergy, unspecified, initial encounter (principal); F41.9 Anxiety disorder, unspecified; F32.A Depression, unspecified; F17.290 Nicotine dependence, other tobacco product, uncomplicated; Z91.048 Other nonmedicinal substance allergy status
CPT/HCPCS: 99282; 96374; 96375 ×2; 96361; J1200; J2930

== ENCOUNTER 2022-11-27 22:05 | Emergency (ER) | payer OTHER ==
[2022-11-27 22:10] VITALS: BP 127/85; PULSE 87; RESP 18; TEMP 98.2
[2022-11-27 22:25] LABS: Appearance,Urine Cloudy (Clear); Bacteria,Urine Rare /hpf; Bilirubin,Urine Negative (Negative); Blood,Urine Negative (Negative); Color,Urine Yellow; Glucose,Urine (UA) Negative (Negative); Ketones,Urine Negative (Negative); Leukocyte Esterase,Urine Trace (Negative); Mucus,Urine Few /hpf; Nitrite,Urine Negative (Negative); Protein,Urine Negative (Negative); RBC,Urine 1 /hpf (0-5); Specific Gravity,Urine 1.016 (1.001-1.035); Squamous Epithelial Cell,Urine 6 /hpf (0-4); Urobilinogen,Urine <2.0 mg/dL (<2.0); WBC,Urine 8 /hpf (0-5)
[2022-11-28] MEDS ORDERED: ONDANSETRON 4 MG/2 ML VIAL IVP STA (00:14)
[2022-11-28] MEDS ORDERED: KETOROLAC 15 MG/ML 1 ML VIAL IVP STA (00:14)
--- NOTE | 2022-11-28 00:52 | ED ---
Abdominal Pain HPI - General Chief Complaint: Abdominal Pain Stated Complaint: Right Hip Pain, Chest Pain, Time Seen by Provider: 11/28/22 00:10 Source: patient, RN notes reviewed Mode of arrival: ambulatory Limitations: no limitations - History of Present Illness Initial Comments: This is a 22-year-old female who presents to the emergency department for right- sided pelvic pain. Patient states that this started a couple of days ago and has since persisted. Reports associated nausea. Denies any diarrhea or constipation. Also denies any history of similar symptoms in the past. She denies any burning with urination or blood in her urine. Denies any fevers, chills, sore throat, cough, dyspnea, chest pain, palpitations, vomiting, diarrhea, back pain, or headaches. MD Complaint: abdominal pain Onset/Timin -: days(s) - Related Data Home Medications Medication Instructions Recorded Confirmed Cariprazine HCl [Vraylar] 1.5 mg PO DAILY@1130 05/12/22 05/12/22 Ferrous Sulfate [Iron (65 MG 325 mg PO DAILY@1130 05/12/22 05/12/22 Elemental)] Multivitamins, Thera [Multivitamin 1 tab PO DAILY@1130 05/12/22 05/12/22 (formulary)] norgestimate-ethinyl estradioL 1 tab PO DIRECTED 05/12/22 05/12/22 [Sprintec 28 Day Tablet] Previous Rx's Medication Instructions Recorded Tranexamic Acid 1,300 mg PO TID 5 Days #30 tablet 05/12/22 diphenhydrAMINE [Benadryl] 50 mg PO BID PRN #6 capsule 07/20/22 Allergies Allergy/AdvReac Type Severity Reaction Status Date / Time adhesive AdvReac Itching Verified 11/27/22 22:10 Review of Systems ROS Statement: Those systems with pertinent positive or pertinent negative responses have been documented in the HPI. ROS Other: All systems not noted in ROS Statement are negative. Past Medical History Past Medical History: GERD/Reflux Additional Past Medical History / Comment(s): CURRENT: ABD PAIN. History of Any Multi-Drug Resistant Organisms: None Reported Past Surgical History: No Surgical Hx Reported Additional Past Surgical History / Comment(s): WISDOM TEETH REMOVED Additional Past Anesthesia/Blood Transfusion Reaction / Comment(s): NEVER HAD G ENERAL ANESTHIA Past Psychological History: Anxiety, Depression Smoking Status: Vaper Past Alcohol Use History: None Reported Past Drug Use History: None Reported - Past Family History Mother Family Medical History: No Reported History General Exam Limitations: no limitations General appearance: alert, in no apparent distress Head exam: Present: atraumatic, normocephalic, normal inspection Respiratory exam: Present: normal lung sounds bilaterally. Absent: respiratory distress, wheezes, rales, rhonchi, stridor Cardiovascular Exam: Present: regular rate, normal rhythm, normal heart sounds. Absent: systolic murmur, diastolic murmur, rubs, gallop, clicks GI/Abdominal exam: Present: soft, tenderness (right sided pelvic region). Absent: distended Neurological exam: Present: alert, oriented X3, CN II-XII intact Psychiatric exam: Present: normal affect, normal mood Skin exam: Present: warm, dry, intact, normal color. Absent: rash Course Vital Signs 11/27/22 22:08 Temperature 98.2 F Pulse Rate 87 Respiratory 18 Rate Blood Pressure 127/85 O2 Sat by Pulse 100 Oximetry Medical Decision Making - Medical Decision Making This is a 22-year-old female who presents to the emergency department for right- sided pelvic/abdominal pain. Was pt. sent in by a medical professional or institution? @ -No Did you speak to anyone other than the patient for history? @ -No Did you review nursing and triage notes? @ -Yes, and I agree, it is accurate with regards to the patient's symptoms. Were old charts reviewed? @ -No Differential Diagnosis? @ -Differential Abdominal Pain Women: Appendicitis, Cholecystitis, diverticulosis, ischemic bowel, pancreatitis, hepatitis, UTI, gastroenteritis, AAA, incarcerated hernia, bowel obstruction, constipation, inflammatory bowel, hepatitis, peptic ulcer disease, splenic infarction, perforated viscus, vulvitis, ovarian torsion, PID, kidney stone, placenta abruption, this is not meant to be an all-inclusive list EKG interpreted by me (3pts min.)? @ -Not obtained X-rays interpreted by me (1pt min.)? @ -Not obtained CT interpreted by me (1pt min.)? @ -Not obtained U/S interpreted by me (1pt. min.)? @ -Transvaginal US obtained. My interpretation identifies a right sided ovarian cyst. What testing was considered but not performed? (CT, X-rays, U/S, labs)? Why? @ -We discussed ordering a computed tomography scan of the abdomen and pelvis to evaluate for any other pathology such as an appendicitis. Patient requests to avoid that at this time. What meds were considered but not given? Why? @ -None Did you discuss the management of the patient with other professionals? @ -No Did you reconcile home meds? @ -No Was smoking cessation discussed for >3mins.? @ -No Was critical care preformed (if so, how long)? @ -No Were there social determinants of health that impacted care today? How? (Homelessness, low income, unemployed, alcoholism, drug addiction, transportation, low edu. Level, literacy, decrease access to med. care, fci, rehab)? @ -No Was there de-escalation of care discussed even if they declined? (Discuss DNR or withdrawal of care, Hospice)? @ -No What co-morbidities impacted this encounter? (DM, HTN, Smoking, COPD, CAD, Cancer, CVA, Hep., AIDS, mental health diagnosis, sleep apnea, morbid obesity)? @ -None Was patient admitted / discharged? @ -Discharged. Lab work obtained and found to be nonactionable. Transvaginal ultrasound obtained given that her pain was much lower down in the pelvis as opposed to the lower abdomen. This revealed a simple right ovarian cyst. Toradol and Zofran adequately controlled symptoms. Discussed with the patient that the ultrasound does not evaluate her appendix, and we would need a computed tomography scan of the abdomen and pelvis for this. Patient requests to avoid additional imaging at this time. Given that symptoms started 2-3 days ago and she has no fevers or leukocytosis at this point, I am in agreement with this. She was advised that if symptoms persist, she develops fevers, chills, or otherwise seems to worsen, she should return to the emergency department to discuss a computed tomography scan of the abdomen and pelvis. Patient expresses understanding. She does have an [facility] PA[facility] in [place]. Advised to follow up with them for reevaluation of the ovarian cyst. She'll otherwise continue to alternate with ibuprofen and Tylenol as needed for pain relief. Undiagnosed new problem with uncertain prognosis? @ -None Drug Therapy requiring intensive monitoring for toxicity (Heparin, Nitro, Insulin, Cardizem)? @ -None Were any procedures done? @ -None Diagnosis/symptom? @ -Right ovarian cyst Acute, or Chronic, or Acute on Chronic? @ -Acute Uncomplicated (without systemic symptoms) or Complicated (systemic symptoms)? @ -Uncomplicated Side effects of treatment? @ -None Exacerbation, Progression, or Severe Exacerbation] @ -Not applicable Poses a threat to life or bodily function? @ -No Return precautions reviewed in depth, the patient is instructed to return to the emergency department with any new, worsening, or concerning symptoms. Patient verbalized understanding. This case was discussed in detail with the attending ED physician, Dr. Herrera. Presentation, findings, and treatment plan discussed in detail as well. - Lab Data Result diagrams: 11/28/22 00:43 11/28/22 00:43 Lab Results 11/27/22 11/27/22 11/28/22 Range/Units 22:14 22:14 00:43 WBC 7.0 (4.0-11.0) k/uL RBC 5.25 (3.80-5.40) m/uL Hgb 13.5 (11.4-16.0) gm/dL Hct 42.2 (34.0-46.0) % MCV 80.5 (80.0-100.0) fL MCH 25.7 (25.0-35.0) pg MCHC 31.9 (31.0-37.0) g/dL RDW 15.4 (11.5-15.5) % Plt Count 270 (150-450) k/uL MPV 9.9 Neutrophils % 64 % Lymphocytes % 28 % Monocytes % 5 % Eosinophils % 1 % Basophils % 0 % Neutrophils # 4.5 (1.3-7.7) k/uL Lymphocytes # 2.0 (1.0-4.8) k/uL Monocytes # 0.4 (0-1.0) k/uL Eosinophils # 0.1 (0-0.7) k/uL Basophils # 0.0 (0-0.2) k/uL Sodium (137-145) mmol/L Potassium (3.5-5.1) mmol/L Chloride (98-107) mmol/L Carbon Dioxide (22-30) mmol/L Anion Gap mmol/L BUN (7-17) mg/dL Creatinine (0.52-1.04) mg/dL Est GFR (CKD-EPI)AfAm (>60 ml/min/1.73 sqM) Est GFR (CKD-EPI)NonAf (>60 ml/min/1.73 sqM) Glucose (74-99) mg/dL Plasma Lactic Acid Markus (0.7-2.0) mmol/L Calcium (8.4-10.2) mg/dL Total Bilirubin (0.2-1.3) mg/dL AST (14-36) U/L ALT (4-34) U/L Alkaline Phosphatase (38-126) U/L Total Protein (6.3-8.2) g/dL Albumin (3.5-5.0) g/dL Urine Color Yellow Urine Appearance Cloudy H (Clear) Urine pH 6.0 (5.0-8.0) Ur Specific [place] 1.016 (1.001-1.035) Urine Protein Negative (Negative) Urine Glucose (UA) Negative (Negative) Urine Ketones Negative (Negative) Urine Blood Negative (Negative) Urine Nitrite Negative (Negative) Urine Bilirubin Negative (Negative) Urine Urobilinogen <2.0 (<2.0) mg/dL Ur Leukocyte Esterase Trace H (Negative) Urine RBC 1 (0-5) /hpf Urine WBC 8 H (0-5) /hpf Ur Squamous Epith Cells 6 H (0-4) /hpf Urine Bacteria Rare H (None) /hpf Urine Mucus Few H (None) /hpf Urine HCG, Qual Not Detected (Not Detectd) 11/28/22 11/28/22 Range/Units 00:43 00:43 WBC (4.0-11.0) k/uL RBC (3.80-5.40) m/uL Hgb (11.4-16.0) gm/dL Hct (34.0-46.0) % MCV (80.0-100.0) fL MCH (25.0-35.0) pg MCHC (31.0-37.0) g/dL RDW (11.5-15.5) % Plt Count (150-450) k/uL MPV Neutrophils % % Lymphocytes % % Monocytes % % Eosinophils % % Basophils % % Neutrophils # (1.3-7.7) k/uL Lymphocytes # (1.0-4.8) k/uL Monocytes # (0-1.0) k/uL Eosinophils # (0-0.7) k/uL Basophils # (0-0.2) k/uL Sodium 139 (137-145) mmol/L Potassium 4.2 (3.5-5.1) mmol/L Chloride 102 (98-107) mmol/L Carbon Dioxide 26 (22-30) mmol/L Anion Gap 11 mmol/L BUN 12 (7-17) mg/dL Creatinine 0.59 (0.52-1.04) mg/dL Est GFR (CKD-EPI)AfAm >90 (>60 ml/min/1.73 sqM) Est GFR (CKD-EPI)NonAf >90 (>60 ml/min/1.73 sqM) Glucose 90 (74-99) mg/dL Plasma Lactic Acid Markus 0.7 (0.7-2.0) mmol/L Calcium 9.7 (8.4-10.2) mg/dL Total Bilirubin 1.9 H (0.2-1.3) mg/dL AST 23 (14-36) U/L ALT 15 (4-34) U/L Alkaline Phosphatase 53 (38-126) U/L Total Protein 7.5 (6.3-8.2) g/dL Albumin 4.8 (3.5-5.0) g/dL Urine Color Urine Appearance (Clear) Urine pH (5.0-8.0) Ur Specific [place] (1.001-1.035) Urine Protein (Negative) Urine Glucose (UA) (Negative) Urine Ketones (Negative) Urine Blood (Negative) Urine Nitrite (Negative) Urine Bilirubin (Negative) Urine Urobilinogen (<2.0) mg/dL Ur Leukocyte Esterase (Negative) Urine RBC (0-5) /hpf Urine WBC (0-5) /hpf Ur Squamous Epith Cells (0-4) /hpf Urine Bacteria (None) /hpf Urine Mucus (None) /hpf Urine HCG, Qual (Not Detectd) - Radiology Data Radiology results: report reviewed, image reviewed Disposition Clinical Impression: Right ovarian cyst Disposition: HOME SELF-CARE Instructions (If sedation given, give patient instructions): Ovarian Cyst (ED) Additional Instructions: Return to the emergency department with any new, worsening, or concerning symptoms. Alternate with ibuprofen and Tylenol as needed for pain relief. Contact your [facility] [employer] for a follow-up appointment. Is patient prescribed a controlled substance at d/c from ED?: No Referrals: Cordell Hurley NPC [Primary Care Provider] - 1-2 days
[2022-11-28 00:59] LABS: Basophils % (A) 0 %; Eosinophils # (A) 0.1 k/uL (0-0.7); Eosinophils % (A) 1 %; HCT 42.2 % (34.0-46.0); HGB 13.5 gm/dL (11.4-16.0); Lymphocytes % (A) 28 %; MCH 25.7 pg (25.0-35.0); MCHC 31.9 g/dL (31.0-37.0); MCV 80.5 fL (80.0-100.0); Mean Platelet Volume 9.9; Monocytes # (A) 0.4 k/uL (0-1.0); Monocytes % (A) 5 %; Neutrophils # (A) 4.5 k/uL (1.3-7.7); Neutrophils % (A) 64 %; Platelet Count 270 k/uL (150-450); RBC 5.25 m/uL (3.80-5.40); RDW 15.4 % (11.5-15.5)
--- NOTE | 2022-11-28 01:00 | US ---
EXAM: US Pelvis Transvaginal CLINICAL HISTORY: ITS.REASON US Reason: Right sided pelvic pain TECHNIQUE: Real-time transvaginal pelvic ultrasound with image documentation. Transvaginal imaging was used for better evaluation of the endometrium and adnexa. COMPARISON: 05/12/2022. FINDINGS: Uterus/cervix: The uterus measures 7.1 x 3.7 x 3.4 cm. Endometrial stripe measures 0.6 cm. No myometrial mass. Right ovary: The right ovary measures 4.6 x 3.1 x 2.4 cm. Good flow within the ovaries bilaterally. A 3.2 x 2.5 x 2.2 cm simple right ovarian cyst is noted. Normal blood flow. Left ovary: Left ovary measures 2.7 x 1.2 x 1.6 cm. Free fluid: No free fluid. Bladder: Empty bladder which cannot be evaluated with this probe. IMPRESSION: 1. Simple right ovarian cyst. 2. Flow to both ovaries noted. 3. No free fluid.
[2022-11-28 01:05] LABS: ALT 15 U/L (4-34); AST 23 U/L (14-36); African American GFR (CKD) >90 (>60 ml/min/1.73 sqM); Albumin 4.8 g/dL (3.5-5.0); Alkaline Phosphatase 53 U/L (38-126); Anion Gap 11 mmol/L; Blood Urea Nitrogen 12 mg/dL (7-17); Calcium 9.7 mg/dL (8.4-10.2); Carbon Dioxide 26 mmol/L (22-30); Chloride 102 mmol/L (98-107); Glucose 90 mg/dL (74-99); Non-African American GFR(CKD) >90 (>60 ml/min/1.73 sqM); Potassium 4.2 mmol/L (3.5-5.1); Sodium 139 mmol/L (137-145); Total Bilirubin 1.9 mg/dL (0.2-1.3); Total Protein 7.5 g/dL (6.3-8.2)
[2022-11-28] MEDS ORDERED: IBUPROFEN 600 MG STARTER PACK 4 TAB BTL PO STA (01:30)
[2022-11-28] MEDS ORDERED: ONDANSETRON 4 MG ODT STARTER PACK 2 TAB BTL PO STA (01:30)
[2022-11-28] MEDS ORDERED: ACET/COD 300 MG/30 MG STARTER PACK 6 TAB BTL PO STA (01:30)
== END 2022-11-28 01:49 | disposition home or self-care (01) ==
LOC: EC 22:05
DX: N83.201 Unspecified ovarian cyst, right side (principal); F32.A Depression, unspecified; F41.9 Anxiety disorder, unspecified; F17.290 Nicotine dependence, other tobacco product, uncomplicated; Z79.899 Other long term (current) drug therapy; Z91.09 Other allergy status, other than to drugs and biological substances
CPT/HCPCS: 36415; 80053; 83605; 85025; 81001; 81025; 93975; 76830; 99284; 96374; 96375; J2405; J1885; S0119

== ENCOUNTER → 2023-02-06 | Outpatient (CLI) | payer OTHER | END | disposition home or self-care (01) | LOC: LABWHC1 09:11 | PROVIDERS: ATTEND Family Medicine | DX: N91.2 Amenorrhea, unspecified (principal) | CPT/HCPCS: 36415; 84702 ==

== ENCOUNTER 2023-05-29 10:59 | Emergency (ER) | payer OTHER ==
[2023-05-29 11:20] VITALS: BP 128/91; PULSE 95; RESP 18; TEMP 98.3
--- NOTE | 2023-05-29 11:32 | ED ---
Recheck HPI - General Chief Complaint: Recheck/Abnormal Lab/Rx Stated Complaint: test Time Seen by Provider: 05/29/23 11:06 Source: patient, RN notes reviewed Mode of arrival: ambulatory Limitations: no limitations - History of Present Illness Initial Comments: This is a 22-year-old female who presents to the emergency department for a test. Patient states that she had the Nexplanon, which was recently removed, and her periods have been very irregular, so she is unsure when her last menstrual period was. However, she is having lower abdominal and lower back pain as well as sore breasts, which are the symptoms she had in the past when she was . Denies any vaginal bleeding. She has only been once in the past, which was 2 years ago, and she does have a child home. She has taken a few tests at home which have been positive. She also went to [facility] 3 days ago and had a positive hCG of 14. She would like repeat testing here for confirmation. - Related Data Home Medications Medication Instructions Recorded Confirmed Cariprazine HCl [Vraylar] 1.5 mg PO DAILY@1130 05/12/22 05/12/22 Ferrous Sulfate [Iron (65 MG 325 mg PO DAILY@1130 05/12/22 05/12/22 Elemental)] Multivitamins, Thera [Multivitamin 1 tab PO DAILY@1130 05/12/22 05/12/22 (formulary)] norgestimate-ethinyl estradioL 1 tab PO DIRECTED 05/12/22 05/12/22 [Sprintec 28 Day Tablet] Previous Rx's Medication Instructions Recorded Tranexamic Acid [Lysteda] 1,300 mg PO TID 5 Days #30 tablet 05/12/22 diphenhydrAMINE [Benadryl] 50 mg PO BID PRN #6 capsule 07/20/22 Allergies Allergy/AdvReac Type Severity Reaction Status Date / Time adhesive AdvReac Itching Verified 05/29/23 11:05 Review of Systems ROS Statement: Those systems with pertinent positive or pertinent negative responses have been documented in the HPI. ROS Other: All systems not noted in ROS Statement are negative. Past Medical History Past Medical History: GERD/Reflux Additional Past Medical History / Comment(s): CURRENT: ABD PAIN. History of Any Multi-Drug Resistant Organisms: None Reported Past Surgical History: No Surgical Hx Reported Additional Past Surgical History / Comment(s): WISDOM TEETH REMOVED, D&C for excessive bleeding 05/2022 Additional Past Anesthesia/Blood Transfusion Reaction / Comment(s): NEVER HAD GENERAL ANESTHIA Past Psychological History: Anxiety, Depression Smoking Status: Vaper Past Alcohol Use History: None Reported Past Drug Use History: None Reported - Past Family History Mother Family Medical History: No Reported History General Exam Limitations: no limitations General appearance: alert, in no apparent distress Head exam: Present: atraumatic, normocephalic, normal inspection Respiratory exam: Present: normal lung sounds bilaterally. Absent: respiratory distress, wheezes, rales, rhonchi, stridor Cardiovascular Exam: Present: regular rate, normal rhythm, normal heart sounds. Absent: systolic murmur, diastolic murmur, rubs, gallop, clicks Neurological exam: Present: alert, oriented X3, CN II-XII intact Psychiatric exam: Present: normal affect, normal mood Skin exam: Present: warm, dry, intact, normal color. Absent: rash Course Vital Signs 05/29/23 11:00 Temperature 98.3 F Pulse Rate 95 Respiratory 18 Rate Blood Pressure 128/91 O2 Sat by Pulse 100 Oximetry Medical Decision Making - Medical Decision Making This is a 22-year-old female who presents to the emergency department requesting a test. Was pt. sent in by a medical professional or institution? @ -No Did you speak to anyone other than the patient for history? @ -No Did you review nursing and triage notes? @ -Yes, and I agree, it is accurate with regards to the patient's symptoms. Were old charts reviewed? @ -No Differential Diagnosis? @ -Not applicable EKG interpreted by me (3pts min.)? @ -Not obtained X-rays interpreted by me (1pt min.)? @ -Not obtained CT interpreted by me (1pt min.)? @ -Not obtained U/S interpreted by me (1pt. min.)? @ -Not obtained What testing was considered but not performed? (CT, X-rays, U/S, labs)? Why? @ -None What meds were considered but not given? Why? @ -None Did you discuss the management of the patient with other professionals? @ -No Did you reconcile home meds? @ -No Was smoking cessation discussed for >3mins.? @ -No Was critical care preformed (if so, how long)? @ -No Were there social determinants of health that impacted care today? How? (Homelessness, low income, unemployed, alcoholism, drug addiction, transportation, low edu. Level, literacy, decrease access to med. care, long-term, rehab)? @ -No Was there de-escalation of care discussed even if they declined? (Discuss DNR or withdrawal of care, Hospice)? @ -No What co-morbidities impacted this encounter? (DM, HTN, Smoking, COPD, CAD, Cancer, CVA, Hep., AIDS, mental health diagnosis, sleep apnea, morbid obesity)? @ -None Was patient admitted / discharged? @ -Discharged. Urine hCG negative, however hCG quantitative was 45.5. This has increased compared with 3 days ago when it was 14. Advised the patient that she will need to have her blood work repeated in 2 days to see if this continues to increase or begins to decrease. Also advised that she will need to follow up with [facility]. She was given a lab slip to have her lab work repeated and otherwise discharged home in stable condition. Undiagnosed new problem with uncertain prognosis? @ -None Drug Therapy requiring intensive monitoring for toxicity (Heparin, Nitro, Insulin, Cardizem)? @ -None Were any procedures done? @ -None Diagnosis/symptom? @ -Encounter for test Acute, or Chronic, or Acute on Chronic? @ -Acute Uncomplicated (without systemic symptoms) or Complicated (systemic symptoms)? @ -Uncomplicated Side effects of treatment? @ -None Exacerbation, Progression, or Severe Exacerbation] @ -Not applicable Poses a threat to life or bodily function? @ -No Return precautions reviewed in depth, the patient is instructed to return to the emergency department with any new, worsening, or concerning symptoms. Patient verbalized understanding. This case was discussed in detail with the attending ED physician, Dr. Moscoso. Presentation, findings, and treatment plan discussed in detail as we ll. - Lab Data Lab Results 05/29/23 05/29/23 05/29/23 Range/Units 11:13 11:13 12:00 HCG, Quant 45.5 mIU/mL Urine Color Yellow Urine Appearance Clear (Clear) Urine pH 6.0 (5.0-8.0) Ur Specific [place] 1.015 (1.001-1.035) Urine Protein Negative (Negative) Urine Glucose (UA) Negative (Negative) Urine Ketones Negative (Negative) Urine Blood Negative (Negative) Urine Nitrite Negative (Negative) Urine Bilirubin Negative (Negative) Urine Urobilinogen <2.0 (<2.0) mg/dL Ur Leukocyte Esterase Negative (Negative) Urine HCG, Qual Not Detected (Not Detectd) Disposition Clinical Impression: Encounter for test Disposition: HOME SELF-CARE Additional Instructions: Return to the emergency department with any new, worsening, or concerning symptoms. Take the lab slip to the [facility] lab in the hospital have your hCG count repeated in 2 days, on Wednesday. Your current hCG count is 45.5. Follow up with [facility]. Is patient prescribed a controlled substance at d/c from ED?: No Referrals: Mitzi Munoz NPC [REFERRING] - 1-2 days
[2023-05-29 12:35] LABS: Appearance,Urine Clear (Clear); Bilirubin,Urine Negative (Negative); Blood,Urine Negative (Negative); Color,Urine Yellow; Glucose,Urine (UA) Negative (Negative); Ketones,Urine Negative (Negative); Leukocyte Esterase,Urine Negative (Negative); Nitrite,Urine Negative (Negative); Protein,Urine Negative (Negative); Specific Gravity,Urine 1.015 (1.001-1.035); Urobilinogen,Urine <2.0 mg/dL (<2.0)
== END 2023-05-29 13:18 | disposition home or self-care (01) ==
LOC: EC 10:59
DX: Z32.02 Encounter for pregnancy test, result negative (principal); F41.9 Anxiety disorder, unspecified; F32.A Depression, unspecified; F17.290 Nicotine dependence, other tobacco product, uncomplicated; Z79.899 Other long term (current) drug therapy; Z88.8 Allergy status to other drugs, medicaments and biological substances
CPT/HCPCS: 36415; 81003; 81025; 84702; 99283

== ENCOUNTER → 2023-05-31 | Outpatient (CLI) | payer OTHER | END | disposition home or self-care (01) | LOC: LABWHC1 07:40 | PROVIDERS: ATTEND Physician Assistant | DX: O20.0 Threatened abortion (principal); Z3A.00 Weeks of gestation of pregnancy not specified | CPT/HCPCS: 36415; 84702 ==

== ENCOUNTER → 2023-06-30 | Outpatient (CLI) | payer OTHER | END | disposition home or self-care (01) | LOC: LABWHC1 08:55 | PROVIDERS: ATTEND Obstetrics & Gynecology | DX: N92.6 Irregular menstruation, unspecified (principal) | CPT/HCPCS: 36415; 84144; 84702; 86850; 86900; 86901 ==

== ENCOUNTER → 2023-09-27 | Outpatient (CLI) | payer OTHER ==
[2023-09-27 17:05] LABS: Amphetamine Screen,Urine Not Detected (NotDetected); Barbiturate Screen,Urine Not Detected (NotDetected); Benzodiazepines Screen,Urine Not Detected (NotDetected); Cocaine Screen,Urine Not Detected (NotDetected); Methadone Screen, Urine Not Detected (NotDetected); Opiate Screen,Urine Not Detected (NotDetected); Oxycodone Screen, Urine Not Detected (NotDetected); Phencyclidine Screen,Urine Not Detected (NotDetected); Tricyclic Antidepressant,Urine Not Detected (NotDetected); Urn Cannabinoid Scrn Not Detected (NotDetected)
[2023-09-27 19:56] LABS: Appearance,Urine Clear (Clear); Bilirubin,Urine Negative (Negative); Blood,Urine Negative (Negative); Color,Urine Yellow (Yellow); Ketones,Urine Negative (Negative); Nitrite,Urine Negative (Negative); PH, Urine 6.5; Specific Gravity,Urine 1.003 (1.001-1.030); Urobilinogen,Urine 0.2 E.U./DL
[2023-09-27 20:37] LABS: Basophils # (A) 0.04 X 10*3/uL (0.00-0.10); Basophils % (A) 0.4 %; Eosinophils # (A) 0.05 X 10*3/uL (0.04-0.35); Eosinophils % (A) 0.4 %; HCT 34.3 % (37.2-46.3); HGB 11.2 g/dL (12.0-15.0); Lymphocytes # (A) 1.75 X 10*3/uL (0.90-5.00); Lymphocytes % (A) 15.4 %; MCH 29.2 pg (27.0-32.0); MCHC 32.7 g/dL (32.0-37.0); MCV 89.3 FL (80.0-97.0); Mean Platelet Volume 11.1 FL (9.5-12.2); Monocytes # (A) 0.61 X 10*3/uL (0.20-1.00); Monocytes % (A) 5.4 %; NRBC Per 100 WBC 0 X 10*3/uL (0.00-0.01); Neutrophils # (A) 8.86 X 10*3/uL (1.80-7.70); Neutrophils % (A) 77.6 %; Platelet Count 296 X 10*3/uL (140-440); RBC 3.84 X 10*6/uL (4.10-5.20); RDW 13.2 % (11.5-14.5)
[2023-09-27 20:46] LABS: Hepatitis B Surface Antigen Nonreactive (Nonreactive); Hepatitis C IgG Antibody Nonreactive (Nonreactive)
[2023-09-27 20:54] LABS: % Iron Saturation 4.98 (12.00-45.00); T4, Free (Free Thyroxine) 1.07 ng/dL (0.80-1.80)
[2023-09-27 21:52] LABS: HIV 2 AB Non-Reactive (Non-Reactive); HIV AB P24 Non-Reactive (Non-Reactive); HIV P24 AG Non-Reactive (Non-Reactive)
[2023-09-28 04:46] LABS: Toxoplasma Antibody (IgG) <3.0 IU/mL (<7.2); Toxoplasma Antibody (IgM) <3.0 AU/mL (<8.0)
== END | disposition home or self-care (01) ==
LOC: LABWHC1 16:12
PROVIDERS: ATTEND Obstetrics & Gynecology
DX: Z36.1 Encounter for antenatal screening for raised alphafetoprotein level (principal); Z36.89 Encounter for other specified antenatal screening
CPT/HCPCS: 36415; 80306; 81003; 82105; 82306; 82677; 82947; 83540; 83550; 84144; 84439; 84443; 84702; 85025; 85660; 86336; 86762; 86777; 86778; 86803; 86850; 86900; 86901; 87086; 87340; 87390

== ENCOUNTER 2023-10-06 23:45 | Outpatient (CLI) | payer OTHER ==
[2023-10-07 00:46] VITALS: BP 125/61; PULSE 95; RESP 16; TEMP 97.3
--- NOTE | 2023-10-23 18:14 | P.MSEPDOC ---
Presenting Problems - Arrival Data Date of Arrival on Unit: 10/06/23 Time of Arrival on Unit: 23:45 Mode of Transport: Ambulatory - Complaint OB-Reason for Admission/Chief Complaint: Pain Comment: constant abdominal pain 10/28 Medical History - Information : 2 Para: 1 Term: 1 : 0 Abortions: Spontaneous or Elective: 0 Number of Living Children: 1 - Gestational Age Gestational Age by LON (wks/days): 22 Weeks and 4 Days - History Complications: Placenta Previa Comment: marginal placenta previa Review of Systems - Review of Systems Constitutional: No problems Breast: No problems ENT: No problems Cardiovascular: No problems Respiratory: No problems Gastrointestinal: No problems Genitourinary: No problems Musculoskeletal: No problems Neurological: No problems Skin: No problems Vital Signs - Temperature Temperature: 97.3 F Temperature Source: Temporal Artery Scan - Pulse Pulse Oximetery Pulse Rate: 95 Pulse Assessment Method: Pulse Oximetry - Respirations Respiratory Rate: 16 Oxygen Delivery Method: Room Air O2 Sat by Pulse Oximetry: 99 - Blood Pressure Right Arm Blood Pressure: 125/61 Blood Pressure Mean: 82 Blood Pressure Source: Automatic Cuff Medical Screen Scoring - Assessment - Baby A Baseline FHR: 140 Heart Rate - NICHD Category: Category I (Normal) NST: Reactive Physician Notification - Physician Notified Physician Notified Date: 10/07/23 Physician Notified Time: 00:07 Physician: Vira Rivera Order Received: Yes - Notification Comment Comment: Dr. Rivera called, report given on maternal complaints of constant abdominal pain (worse with movement) since 0700 this morning. Pt also has a marginal placenta previa. Abdomen is soft and nontender and pt has no vaginal bleeding. Vitals WNL, FHTs 140s with accels and good movement. No contractions noted. Orders to send a UA and if negative, pt can be discharged home with instructions on round ligament pain. called back after pt shows RN clean UA that was performed at [facility]. Orders to discharge home. Maternal Triage Index - Maternal Triage Index Presenting for scheduled procedure w/no complaint: No - Stat/Priority 1 Stat Priority 1: No - Urgent/Priority 2 Urgent Priority 2: No - Prompt/Priority 3 Prompt Priority 3: No - Non-Urgent/Priority 4 Non-Urgent Priority 4: Yes Criteria Met for Priority 4: 09/25wks, constant abdominal pain increased with movement Disposition - Disposition OB Disposition: Discharge to home Discharge Date: 10/07/23 Discharge Time: 00:15 I agree with the RN Medical Screening Exam: Yes Physician's MSE Comment: I have neither seen nor examined the patient Case reviewed; plan agreed upon as documented in EMR&OBIX.: Yes Diagnosis: MATERNAL CARE FOR PROBLEM, UNSP, SECOND * DO NOT USE *
== END 2023-10-07 00:15 | disposition home or self-care (01) ==
LOC: FBPOP 23:45
PROVIDERS: ATTEND Obstetrics & Gynecology
DX: O26.892 Other specified pregnancy related conditions, second trimester (principal); R10.9 Unspecified abdominal pain; Z3A.22 22 weeks gestation of pregnancy; Z88.0 Allergy status to penicillin
CPT/HCPCS: 99213

== ENCOUNTER 2023-12-06 23:18 | Outpatient (CLI) | payer OTHER ==
[2023-12-07 00:16] VITALS: BP 131/72; PULSE 106; RESP 16; TEMP 97.3
--- NOTE | 2024-01-14 09:17 | P.MSEPDOC ---
Presenting Problems - Arrival Data Date of Arrival on Unit: 12/06/23 Time of Arrival on Unit: 23:18 Mode of Transport: Ambulatory - Complaint OB-Reason for Admission/Chief Complaint: Pain Comment: [facility] complaint of pelvic pressure and cramping that has been ongoing throughout the day. Patient states that the pain is sharp and increases when she is upright and working today. Patient denies vaginal bleeding or leaking of fluid. Medical History - Information : 2 Para: 1 Term: 1 : 0 Abortions: Spontaneous or Elective: 0 Number of Living Children: 1 - Gestational Age Gestational Age by LON (wks/days): 31 Weeks and 2 Days - History Comment: marginal placenta previa resolved at 28 weeks Review of Systems - Review of Systems Constitutional: No problems Breast: No problems ENT: No problems Cardiovascular: No problems Respiratory: No problems Gastrointestinal: No problems Genitourinary: No problems Musculoskeletal: No problems Neurological: No problems Skin: No problems Vital Signs - Temperature Temperature: 97.3 F Temperature Source: Temporal Artery Scan - Pulse Right Brachial Pulse Rate: 106 Pulse Assessment Method: Automatic Cuff - Respirations Respiratory Rate: 16 Oxygen Delivery Method: Room Air O2 Sat by Pulse Oximetry: 99 - Blood Pressure Right Arm Blood Pressure: 131/72 Blood Pressure Mean: 91 Blood Pressure Source: Automatic Cuff Medical Screen Scoring - Cervical Exam Membranes: Intact - Assessment - Baby A Baseline FHR: 135 Heart Rate - NICHD Category: Category I (Normal) NST: Reactive Physician Notification - Physician Notified Physician Notified Date: 12/06/23 Physician Notified Time: 23:50 Physician: Yaquelin Gonzalez New Order Received: Yes (discharge and cervical exam) - Notification Comment Comment: Dr. Gonzalez called with report on patient that [facility] for pelvic pressure and abdominal cramping throughout the day that increases with activity and standing. Patient has history of marginal placental previa that has resolved at 28 weeks. cat 1 FHT tracing, some uterine irritability noted per toco, abdomen soft and nontender. Patient denies contractions. Orders received to check patient and discharge home if closed and thick. Maternal Triage Index - Stat/Priority 1 Stat Priority 1: No - Urgent/Priority 2 Urgent Priority 2: No - Prompt/Priority 3 Prompt Priority 3: No - Non-Urgent/Priority 4 Non-Urgent Priority 4: Yes Criteria Met for Priority 4: [facility] with complaint of pelvic pressure and cramping that has been ongoing throughout the day. Patient states that the pain is sharp and increases when she is upright and working today. Disposition - Disposition OB Disposition: Discharge to home Discharge Date: 12/07/23 Discharge Time: 00:00 I agree with the RN Medical Screening Exam: Yes Case reviewed; plan agreed upon as documented in EMR&OBIX.: Yes Diagnosis: RELATED CONDITIONS, UNSPECIFIED, THIRD TRIMESTER
== END 2023-12-07 ==
LOC: FBPOP 23:18
PROVIDERS: ATTEND Obstetrics & Gynecology Obstetrics
DX: O26.893 Other specified pregnancy related conditions, third trimester (principal); R25.2 Cramp and spasm; R10.2 Pelvic and perineal pain; Z3A.31 31 weeks gestation of pregnancy; Z88.0 Allergy status to penicillin
CPT/HCPCS: 59025; G0463; 99213

== ENCOUNTER 2024-07-11 12:41 | Emergency (ER) | payer OTHER ==
[2024-07-11 12:58] VITALS: RESP 18
--- NOTE | 2024-07-11 13:16 | ED ---
Fall HPI - General Source: patient, RN notes reviewed Mode of arrival: ambulatory - History of Present Illness MD Complaint: fall Onset/Timin -: days(s) Fall From: standing <David Campos - Last Filed: 07/11/24 13:14> <Maureen Rodriguez - Last Filed: 07/11/24 14:32> - General Chief Complaint: Fall Stated Complaint: Fall-Back pain Time Seen by Provider: 07/11/24 12:57 - History of Present Illness Initial Comments: Quick note: This is a 25-year-old female presenting with coccyx pain following fall last night. Patient states she was loading car seat in the car when she fell backwards onto cement, injuring her tailbone. Patient endorses significant pain and is unable to sit. Denies other injury, striking head, loss of consciousness, headache, neck pain, neck pain. (David Campos) - Related Data Home Medications Medication Instructions Recorded Confirmed No Known Home Medications 10/07/23 12/06/23 Allergies Allergy/AdvReac Type Severity Reaction Status Date / Time Penicillins AdvReac Unknown Verified 07/11/24 12:58 Review of Systems ROS Other: All systems not noted in ROS Statement are negative. <David Campos - Last Filed: 07/11/24 13:14> ROS Other: All systems not noted in ROS Statement are negative. <Maureen Rodriguez - Last Filed: 07/11/24 14:32> ROS Statement: Those systems with pertinent positive or pertinent negative responses have been documented in the HPI. Past Medical History Past Medical History: GERD/Reflux Additional Past Medical History / Comment(s): CURRENT: ABD PAIN. History of Any Multi-Drug Resistant Organisms: None Reported Past Surgical History: No Surgical Hx Reported Additional Past Surgical History / Comment(s): WISDOM TEETH REMOVED, D&C for excessive bleeding 05/2022 Additional Past Anesthesia/Blood Transfusion Reaction / Comment(s): NEVER HAD GENERAL ANESTHIA Past Psychological History: Anxiety, Depression Smoking Status: Never smoker - Past Family History Mother Family Medical History: No Reported History <David Campos - Last Filed: 07/11/24 13:14> General Exam Limitations: no limitations <David Campos - Last Filed: 07/11/24 13:14> - General Exam Comments Initial Comments: Visual Physical Exam Vital signs reviewed General: Well-appearing, nontoxic. Patient not seated Head: Normocephalic, atraumatic Eyes: PERRLA, EOMI ENT: Airway patent Chest: Nonlabored breathing Skin: No visual rash, normal skin tone Neuro: Alert and oriented 3 Musculoskeletal: No gross abnormalities (David Campos) Course Vital Signs 07/11/24 12:55 Temperature 98.1 F Pulse Rate 95 Respiratory 18 Rate Blood Pressure 116/81 O2 Sat by Pulse 100 Oximetry Medical Decision Making <David Campos - Last Filed: 07/11/24 13:14> <Maureen Rodriguez - Last Filed: 07/11/24 14:32> - Medical Decision Making I completed the quick note portion of this chart signed David Campos PA-C (David Campos) Was pt. sent in by a medical professional or institution (BRANDAN Prasad, CLINICAL IMMUNOLOGIST, urgent care, hospital, or fdc...) When possible be specific @ -[No] Did you speak to anyone other than the patient for history (EMS, parent, family, police, friend...)? What history was obtained from this source @ -[No] Did you review nursing and triage notes (agree or disagree)? Why? @ -[I reviewed and agree with nursing and triage notes] Were old charts reviewed (outside hosp., previous admission, EMS record, old EKG, old radiological studies, urgent care reports/EKG's, fdc records)? Report findings @ -[No old charts were reviewed] Differential Diagnosis (chest pain, altered mental status, abdominal pain women, abdominal pain men, vaginal bleeding, weakness, fever, dyspnea, syncope, headache, dizziness, GI bleed, back pain, seizure, CVA, palpatations, mental health, musculoskeletal)? @ -Differential Back Pain: Strain, zoster, cauda equina syndrome, epidural abscess, vertebral osteomyelitis, discitis, fracture, subluxation, disc herniation, DJD, spinal stenosis, dissection, AAA, pancreatitis, peptic ulcer disease, pyelonephritis, kidney stone, this is not meant to be an all-inclusive list. EKG interpreted by me (3pts min.). @ -[As above] X-rays interpreted by me (1pt min.). @ -X-ray of the sacrum and coccyx no evidence of acute displaced fracture,, SI joints symmetric and unremarkable CT interpreted by me (1pt min.). @ -[None done] U/S interpreted by me (1pt. min.). @ -[None done] What testing was considered but not performed or refused? (CT, X-rays, U/S, labs)? Why? @ -[None] What meds were considered but not given or refused? Why? @ -[None] Did you discuss the management of the patient with other professionals (professionals i.e. , PA, CLINICAL IMMUNOLOGIST, lab, RT, psych nurse, psych social worker, kitchen supervisor, teacher, home lending officer, returned case inspector)? Give summary @ -[No] Was smoking cessation discussed for >3mins.? @ -[No] Was critical care preformed (if so, how long)? @ -[No] Were there social determinants of health that impacted care today? How? (Homelessness, low income, unemployed, alcoholism, drug addiction, transportati on, low edu. Level, literacy, decrease access to med. care, skilled nursing, rehab)? @ -[No] Was there de-escalation of care discussed even if they declined (Discuss DNR or withdrawal of care, Hospice)? DNR status @ -[No] What co-morbidities impacted this encounter? (DM, HTN, Smoking, COPD, CAD, Cancer, CVA, ARF, Chemo, Hep., AIDS, mental health diagnosis, sleep apnea, morbid obesity)? @ -[None] Was patient admitted / discharged? Hospital course, mention meds given and route, prescriptions, significant lab abnormalities, going to OR and other pertinent info. @ -[hospital course] Undiagnosed new problem with uncertain prognosis? @ -[No] Drug Therapy requiring intensive monitoring for toxicity (Heparin, Nitro, Insulin, Cardizem)? @ -[No] Were any procedures done? @ -[No] Diagnosis/symptom? @ -[default] Acute, or Chronic, or Acute on Chronic? @ -[default] Uncomplicated (without systemic symptoms) or Complicated (systemic symptoms)? @ -[default] Side effects of treatment? @ -[No] Exacerbation, Progression, or Severe Exacerbation? @ -[No] Poses a threat to life or bodily function? How? (Chest pain, [place], [place], pneumonia, PE, COPD, DKA, ARF, appy, cholecystitis, CVA, Diverticulitis, Homicidal, Suicid al, threat to staff... and all critical care pts) @ -[No] (Maureen Rodriguez) Disposition <David Campos - Last Filed: 07/11/24 13:14> Is patient prescribed a controlled substance at d/c from ED?: No Time of Disposition: 14:27 <Maureen Rodriguez - Last Filed: 07/11/24 14:32> Clinical Impression: Fall, Coccyx pain Disposition: HOME SELF-CARE Condition: Good Instructions (If sedation given, give patient instructions): Coccyx Injury (ED) Additional Instructions: Please return to the Emergency Department if symptoms worsen or any other concerns. Referrals: Nonstaff,Physician [REFERRING] - 1-2 days
[2024-07-11] MEDS: KETOROLAC 15 MG/ML 1 ML VIAL IM STA (14:20)
--- NOTE | 2024-07-11 14:25 | XR ---
EXAMINATION TYPE: XR sacrum coccyx DATE OF EXAM: 07/11/2024 COMPARISON: NONE CLINICAL INDICATION: Female, 24 years old with history of Fall; pain after fall injury TECHNIQUE: 2 views of sacrum and coccyx are obtained. FINDINGS: No acute displaced fracture of the sacrum or coccyx. Sacroiliac joints are symmetric and un remarkable. Tubular shaped lucency over the lower pelvis is consistent with tampon use in the vagina . IMPRESSION: As above. [facility], , 07/11/2024 2:23 PM
[2024-07-11 15:00] VITALS: BP 127/79; PULSE 67; TEMP 97.7
== END 2024-07-11 15:00 | disposition home or self-care (01) ==
LOC: EC 12:41
DX: M53.3 Sacrococcygeal disorders, not elsewhere classified (principal); Z88.0 Allergy status to penicillin; W18.30XA Fall on same level, unspecified, initial encounter
CPT/HCPCS: 72220; 99283; 96372; J1885

== ENCOUNTER 2024-08-21 11:52 | Observation (INO) | payer OTHER ==
--- NOTE | 2024-08-21 13:06 | ED ---
Abdominal Pain HPI <Quirino Sánchez - Last Filed: 08/21/24 16:11> - General Source: patient Mode of arrival: ambulatory Limitations: no limitations <Stef Benedict - Last Filed: 08/21/24 16:48> - General Chief Complaint: Abdominal Pain Stated Complaint: vomiting blood - History of Present Illness Initial Comments: Patient is a 24-year-old female with no pertinent medical history presented to the emergency department with general abdominal tenderness and vomiting up blood for the past 2 days. Patient stated that over the course of the past weekend she has had several episodes of vomiting up bright red blood along with some blood clots. Patient does report a family history significant for blood disorder as she reported that her father had similar symptoms in the past. She does not appear in general distress during my assessment. Patient reports that she does have a history of rectal bleed with black tarry stool in the past. Patient did have a D&C in the past several months after her first child was born. Patient has not gotten sick recently. She currently endorses lightheadedness, dizzy, general abdominal pain but denies any fever, chills, chest pain, shortness of breath, dysuria, diarrhea or constipation. (Stef Benedict) - Related Data Home Medications Medication Instructions Recorded Confirmed No Known Home Medications 08/21/24 08/21/24 Allergies Allergy/AdvReac Type Severity Reaction Status Date / Time Penicillins AdvReac "body Verified 08/21/24 16:22 shuts down" Review of Systems ROS Other: All systems not noted in ROS Statement are negative. <Quirino Sánchez - Last Filed: 08/21/24 16:11> ROS Other: All systems not noted in ROS Statement are negative. Constitutional: Denies: fever, chills Cardiovascular: Denies: chest pain, dyspnea on exertion, edema Gastrointestinal: Reports: abdominal pain, vomiting, hematemesis. Denies: nausea Genitourinary: Denies: dysuria, hematuria <Stef Benedict - Last Filed: 08/21/24 16:48> ROS Statement: Those systems with pertinent positive or pertinent negative responses have been documented in the HPI. Past Medical History Past Medical History: GERD/Reflux Additional Past Medical History / Comment(s): CURRENT: ABD PAIN. History of Any Multi-Drug Resistant Organisms: None Reported Past Surgical History: No Surgical Hx Reported Additional Past Surgical History / Comment(s): WISDOM TEETH REMOVED, D&C for excessive bleeding 05/2022 Additional Past Anesthesia/Blood Transfusion Reaction / Comment(s): NEVER HAD GENERAL ANESTHIA Past Psychological History: Anxiety, Depression Smoking Status: Never smoker Past Alcohol Use History: Occasional Past Drug Use History: None Reported - Past Family History Mother Family Medical History: No Reported History <Stef Benedict - Last Filed: 08/21/24 16:48> General Exam Limitations: no limitations <Stef Benedict - Last Filed: 08/21/24 16:48> - General Exam Comments Initial Comments: GENERAL: This is a 24-year-old in no apparent distress at the time of examination. Pleasant and cooperative. HEENT: Head is atraumatic, normocephalic. RESPIRATORY: Clear to auscultation bilaterally. No wheezing, rales, stridor, crackles. CARDIOVASCULAR: Regular rate and rhythm. No systolic or diastolic murmur noted. GASTROINTESTINAL: No abdominal distention. Abdomen is generally soft, slight mild diffuse abdominal tenderness. INTEGUMENTARY: No cyanosis. No jaundice. No rashes noted. No cellulitis noted. EXTREMITIES: No evidence of peripheral edema. NEUROLOGIC: Cranial nerves II-XII intact. PSYCHIATRIC: Awake, alert, and oriented X 3. Appropriate affect. Intact judgement and insight. (Stef Benedict) Course Vital Signs 08/21/24 12:13 Temperature 97.7 F Pulse Rate 66 Respiratory 20 Rate Blood Pressure 133/74 O2 Sat by Pulse 99 Oximetry Medical Decision Making - Lab Data Result diagrams: 08/21/24 13:23 08/21/24 13:23 <Quirino Sánchez - Last Filed: 08/21/24 16:11> - Lab Data Result diagrams: 08/21/24 13:23 08/21/24 13:23 <Stef Benedict - Last Filed: 08/21/24 16:48> - Medical Decision Making I personally saw the patient and performed the critical portion of the service. I discussed the patient care with the Dr. Benedict. I directed management, care planning and final disposition of the patient. This includes, but not limited to, review of all lab work, radiological studies, EKG's, consultations, vital signs, and nursing notes. EKG interpreted by me (3pts min.) @ [as above] X-Rays interpreted by me (1 pt min.) @ [none] CT interpreted by me ( 1pt min.) @ [none] U/S interpreted by me (1 pt min.) @ [none] Critical care time of [0] minutes excluding separately billable procedures was spent in conjunction with critical care activities provided by the Resident and Attending simultaneously. I was present during [no procedures] for all critical portions of the procedure and as immediately available to furnish service during the entire procedure. I did speak with Dr. hector covering [facility] who will admit covering Dr. Chavez. Patient was updated on results and plan. (Quirino Sánchez) Was pt. sent in by a medical professional or institution (, PA, LINING INSERTER, urgent care, hospital, or shelter...) When possible be specific @ -No Did you speak to anyone other than the patient for history (EMS, parent, family, police, friend...)? What history was obtained from this source @ -No Did you review nursing and triage notes (agree or disagree)? Why? @ -I reviewed and agree with nursing and triage notes. Were old charts reviewed (outside hosp., previous admission, EMS record, old EKG, old radiological studies, urgent care reports/EKG's, shelter records)? Report findings @ -No old charts reviewed Differential Diagnosis? @ -Peptic ulcer disease, esophageal varices, gastritis, swallowed blood, hemophilia, thrombocytopenia EKG interpreted by me (3pts min.). @ -Not done X-rays interpreted by me (1pt min.). @ -Not done CT interpreted by me (1pt min.). @ -Not done U/S interpreted by me (1pt. min.). @ -Not done What testing was considered but not performed or refused? (CT, X-rays, U/S, labs)? Why? @ -None What meds were considered but not given or refused? Why? @ -Patient refused Zofran Did you discuss the management of the patient with other professionals (professionals i.e. , PA, LINING INSERTER, lab, RT, psych nurse, social media intern, lock and dam equipment repairer, teacher, systems support officer, watch caser)? Give summary @ -With attending physician Was smoking cessation discussed for >3mins.? @ -No Was critical care preformed (if so, how long)? @ -No Were there social determinants of health that impacted care today? How? (Homelessness, low income, unemployed, alcoholism, drug addiction, transportation, low edu. Level, literacy, decrease access to med. care, nursing home, rehab)? @ -No Was there de-escalation of care discussed even if they declined (Discuss DNR or withdrawal of care, Hospice)? DNR status @ -No What co-morbidities impacted this encounter? (DM, HTN, Smoking, COPD, CAD, Canc er, CVA, ARF, Chemo, Hep., AIDS, mental health diagnosis, sleep apnea, morbid obesity)? @ -Family history of bleeding disorder Was patient admitted / discharged? Hospital course, mention meds given and route, prescriptions, significant lab abnormalities, going to OR and other pertinent info. @ -Patient has had several episodes of hematemesis for the past 2 days. Was sent over by PCP for EGD. IV Protonix was given in the ED. CBC and CMP were unremarkable other than slightly increased bilirubin level. Discussed this case with admitting doctor Dr. Kovacs. Have consulted GI and heme-onc. Undiagnosed new problem with uncertain prognosis? @ -No Drug Therapy requiring intensive monitoring for toxicity (Heparin, Nitro, Insulin, Cardizem)? @ -No Were any procedures done? @ -No Diagnosis/symptom? @ -Suspected gastric ulcer Acute, or Chronic, or Acute on Chronic? @ -Acute Uncomplicated (without systemic symptoms) or Complicated (systemic symptoms)? @ -Uncomplicated Side effects of treatment? @ -No Exacerbation, Progression, or Severe Exacerbation? @ -No exacerbation Poses a threat to life or bodily function? How? (Chest pain, [place], [place], pneumonia, PE, COPD, DKA, ARF, appy, cholecystitis, CVA, Diverticulitis, Homicidal, Suicidal, threat to staff... and all critical care pts) @ -No (Stef Benedict) - Lab Data Lab Results 08/21/24 08/21/24 08/21/24 Range/Units 13:23 13:23 13:23 WBC 5.7 (3.8-10.6) k/uL RBC 5.10 (3.80-5.40) m/uL Hgb 14.9 (11.4-16.0) gm/dL Hct 46.4 H (34.0-46.0) % MCV 91.1 (80.0-100.0) fL MCH 29.2 (25.0-35.0) pg MCHC 32.0 (31.0-37.0) g/dL RDW 13.7 (11.5-15.5) % Plt Count 283 (150-450) k/uL MPV 8.3 Neutrophils % 67 % Lymphocytes % 27 % Monocytes % 5 % Eosinophils % 1 % Basophils % 0 % Neutrophils # 3.8 (1.3-7.7) k/uL Lymphocytes # 1.5 (1.0-4.8) k/uL Monocytes # 0.3 (0-1.0) k/uL Eosinophils # 0.0 (0-0.7) k/uL Basophils # 0.0 (0-0.2) k/uL PT (10.0-12.5) sec INR (<1.2) APTT 22.8 (22.0-30.0) sec Sodium 139 (137-145) mmol/L Potassium 4.9 (3.5-5.1) mmol/L Chloride 104 (98-107) mmol/L Carbon Dioxide 26 (22-30) mmol/L Anion Gap 9 mmol/L BUN 11 (7-17) mg/dL Creatinine 0.69 (0.52-1.04) mg/dL Est GFR (CKD-EPI)AfAm >90 (>60 ml/min/1.73 sqM) Est GFR (CKD-EPI)NonAf >90 (>60 ml/min/1.73 sqM) Glucose 88 (74-99) mg/dL Calcium 9.3 (8.4-10.2) mg/dL Total Bilirubin 2.2 H (0.2-1.3) mg/dL AST 34 (14-36) U/L ALT 19 (4-34) U/L Alkaline Phosphatase 76 (38-126) U/L Total Protein 7.2 (6.3-8.2) g/dL Albumin 4.7 (3.5-5.0) g/dL Amylase 57 (30-110) U/L Lipase 87 (23-300) U/L /09/12 Range/Units 13:23 WBC (3.8-10.6) k/uL RBC (3.80-5.40) m/uL Hgb (11.4-16.0) gm/dL Hct (34.0-46.0) % MCV (80.0-100.0) fL MCH (25.0-35.0) pg MCHC (31.0-37.0) g/dL RDW (11.5-15.5) % Plt Count (150-450) k/uL MPV Neutrophils % % Lymphocytes % % Monocytes % % Eosinophils % % Basophils % % Neutrophils # (1.3-7.7) k/uL Lymphocytes # (1.0-4.8) k/uL Monocytes # (0-1.0) k/uL Eosinophils # (0-0.7) k/uL Basophils # (0-0.2) k/uL PT 11.2 (10.0-12.5) sec INR 1.0 (<1.2) APTT (22.0-30.0) sec Sodium (137-145) mmol/L Potassium (3.5-5.1) mmol/L Chloride (98-107) mmol/L Carbon Dioxide (22-30) mmol/L Anion Gap mmol/L BUN (7-17) mg/dL Creatinine (0.52-1.04) mg/dL Est GFR (CKD-EPI)AfAm (>60 ml/min/1.73 sqM) Est GFR (CKD-EPI)NonAf (>60 ml/min/1.73 sqM) Glucose (74-99) mg/dL Calcium (8.4-10.2) mg/dL Total Bilirubin (0.2-1.3) mg/dL AST (14-36) U/L ALT (4-34) U/L Alkaline Phosphatase (38-126) U/L Total Protein (6.3-8.2) g/dL Albumin (3.5-5.0) g/dL Amylase (30-110) U/L Lipase (23-300) U/L Disposition <Quirino Sánchez - Last Filed: 08/21/24 16:11> <Stef Benedict - Last Filed: 08/21/24 16:48> Clinical Impression: Gastric ulcer Narrative: Patient will be admitted to inpatient service to undergo GI and heme-onc evaluation tomorrow (Stef Benedict) Disposition: ADMITTED IP TO THIS HOSP Referrals: Sky Mcguire MD [Primary Care Provider] - 1-2 days
[2024-08-21 13:45] LABS: Basophils % (A) 0 %; Eosinophils % (A) 1 %; HCT 46.4 % (34.0-46.0); HGB 14.9 gm/dL (11.4-16.0); Lymphocytes # (A) 1.5 k/uL (1.0-4.8); Lymphocytes % (A) 27 %; MCH 29.2 pg (25.0-35.0); MCV 91.1 fL (80.0-100.0); Mean Platelet Volume 8.3; Monocytes # (A) 0.3 k/uL (0-1.0); Monocytes % (A) 5 %; Neutrophils # (A) 3.8 k/uL (1.3-7.7); Neutrophils % (A) 67 %; Platelet Count 283 k/uL (150-450); RDW 13.7 % (11.5-15.5); WBC 5.7 k/uL (3.8-10.6)
[2024-08-21 14:11] LABS: Prothrombin Time 11.2 sec (10.0-12.5)
[2024-08-21] MEDS: SODIUM CHLORIDE 0.9% 1,000 ML IV ONE (14:13)
[2024-08-21] MEDS: PANTOPRAZOLE 40 MG/10 ML VIAL IVP STA (14:13)
[2024-08-21 14:14] LABS: ALT 19 U/L (4-34); AST 34 U/L (14-36); African American GFR (CKD) >90 (>60 ml/min/1.73 sqM); Albumin 4.7 g/dL (3.5-5.0); Alkaline Phosphatase 76 U/L (38-126); Amylase 57 U/L (30-110); Anion Gap 9 mmol/L; Blood Urea Nitrogen 11 mg/dL (7-17); Calcium 9.3 mg/dL (8.4-10.2); Carbon Dioxide 26 mmol/L (22-30); Chloride 104 mmol/L (98-107); Glucose 88 mg/dL (74-99); Lipase 87 U/L (23-300); Non-African American GFR(CKD) >90 (>60 ml/min/1.73 sqM); Potassium 4.9 mmol/L (3.5-5.1); Sodium 139 mmol/L (137-145); Total Bilirubin 2.2 mg/dL (0.2-1.3); Total Protein 7.2 g/dL (6.3-8.2)
[2024-08-21] MEDS: ONDANSETRON 4 MG/2 ML VIAL IVP STA (14:17)
[2024-08-21] MEDS ORDERED: NALOXONE 0.4 MG/ML 1 ML VIAL IV PRN (16:25)
--- NOTE | 2024-08-21 16:54 | P.HPIM ---
History of Present Illness H&P Date: 08/21/24 History of present illness: 24-year-old female with past medical history significant for GERD presented to ER with a complaint of epigastric abdominal pain and vomiting with bright red blood. Patient stated that she has history of frequently bleeding, denied any nosebleed but admitted to having bleeding from the gums with brushing teeth, also reported on and off blood in the stools and reported heavy and long periods has been seen by SOCIOLOGY RESEARCH ASSISTANT in the past, currently has depot patch. Patient stated that she has epigastric abdominal pain worse with food intake going on for the last few months. Patient reported frequent episodes of vomiting in the past as well. Patient stated that this time when she vomited she noticed bright red blood in the vomit, also noted some blood clots. Patient denied any history of taking NSAIDs, denied any history of liver disease, denied taking any blood thinners, denied any fever or chills. Patient denied any productive cough, sore throat, chest pain, palpitations, diarrhea, urinary frequency urgency or dysuria. In the ED patient was afebrile, heart rate 66, respiratory rate 20, blood pressure 133/74, saturating 99% on room air. WBCs 5.7, hemoglobin 14.9, MCV 91.9, platelet 283. PT 11.2, INR 1.0, APTT 22.8. CMP was unremarkable except total bilirubin 2.2. Amylase and lipase negative. Assessment and plan: Hematemesis: History of hematochezia: Patient reported history of easy bleeding, reported history of on and off blood in the stools, frequent and heavy periods. Presented with vomiting with blood. Hemoglobin currently stable Monitor H&H Monitor vitals IV Protonix Ultrasound liver GI consult Hematology consult DVT prophylaxis SCD Monitor vital signs and labs Labs and medication were reviewed. Continue same treatment. Further recommendations as per clinical course of the patient PHYSICAL EXAMINATION: GENERAL: The patient is A&O x3, NAD HEENT: EOMI, Sclerae anicteric, Moist Mucous membranes Neck: Supple, Non tender, No JVD PULMONARY: Equal breath souds B/L, No wheezing, No crackles. CARDIOVASCULAR: S1, S2 present. No murmurs, rubs, or gallops. ABDOMEN: Soft, epigastric tender, nondistended, normoactive bowel sounds. No guarding or rebound tenderness. MUSCULOSKELETAL: No edema, No cyanosis. No clubbing. Normal ROM. Intact peripheral pulses. NEUROLOGICAL: CN 2-12 grossly intact. No FND REVIEW OF SYSTEMS: CONSTITUTIONAL: No fever, no malaise, no fatigue. HEENT: No recent visual problems or hearing problems. Denied any sore throat. CARDIOVASCULAR: No chest pain, orthopnea, PND, no palpitations, no syncope. PULMONARY: No shortness of breath, no cough, no hemoptysis. GASTROINTESTINAL: No diarrhea, no nausea, no vomiting, no abdominal pain. NEUROLOGICAL: No headaches, no weakness, no numbness. HEMATOLOGICAL: Denies any bleeding or petechiae. GENITOURINARY: Denies any burning micturition, frequency, or urgency. MUSCULOSKELETAL/RHEUMATOLOGICAL: Denies any joint pain, swelling, or any muscle pain. ENDOCRINE: Denies any polyuria or polydipsia. The rest of the 14-point review of systems is negative. Dictation was produced using [employer] software. please excuse any grammatical, word or spelling errors. Past Medical History Past Medical History: GERD/Reflux Additional Past Medical History / Comment(s): CURRENT: ABD PAIN. History of Any Multi-Drug Resistant Organisms: None Reported Past Surgical History: No Surgical Hx Reported Additional Past Surgical History / Comment(s): WISDOM TEETH REMOVED, D&C for excessive bleeding 05/2022 Additional Past Anesthesia/Blood Transfusion Reaction / Comment(s): NEVER HAD GENERAL ANESTHIA Past Psychological History: Anxiety, Depression Smoking Status: Never smoker Past Alcohol Use History: Occasional Past Drug Use History: None Reported - Past Family History Mother Family Medical History: No Reported History Medications and Allergies Home Medications Medication Instructions Recorded Confirmed Type No Known Home Medications 08/21/24 08/21/24 History Allergies Allergy/AdvReac Type Severity Reaction Status Date / Time Penicillins AdvReac "body Verified 08/21/24 16:22 shuts down" Physical Exam Vitals: Vital Signs Temp Pulse Resp BP Pulse Ox 08/21/24 12:13 97.7 F 66 20 133/74 99 Intake and Output 08/21/24 08/21/24 08/21/24 06:59 14:59 22:59 Other: Weight 65.771 kg Results CBC & Chem 7: 08/21/24 20:16 08/21/24 13:23 Labs: Abnormal Lab Results - Last 24 Hours (Table) 08/21/24 08/21/24 Range/Units 13:23 13:23 Hct 46.4 H (34.0-46.0) % Total Bilirubin 2.2 H (0.2-1.3) mg/dL
--- NOTE | 2024-08-21 18:19 | US ---
EXAMINATION TYPE: US abdomen limited DATE OF EXAM: 08/21/2024 COMPARISON: NONE CLINICAL INDICATION: Female, 24 years old with history of Hematemesis, concern for liver disease; TECHNIQUE: Grayscale and color Doppler imaging of the right upper quadrant. FINDINGS: EXAM MEASUREMENTS: Liver Length: 16.1 cm llbladder Wall: 0.2 cm CBD: 0.3 cm, color Doppler imaging was utilized to isolate the common bile duct for measurement. Right Kidney: 11.5x5.0x6.0 cm [employer] EXAMINER NOTES: slightly limited exam due to overlying bowel Pancreas: Obscured by bowel gas Liver: No abnormalities seen PV measures upper limits of normal Gallbladder: No stones seen Evidence for sonographic Jaime's sign: No CBD: wnl Right Kidney: No hydronephrosis or masses seen IMPRESSION: No evidence for acute abdominal process. [facility], , 08/21/2024 6:16 PM
[2024-08-21] MEDS: PANTOPRAZOLE 40 MG/10 ML VIAL IVP SCH (20:10)
[2024-08-21 20:16] VITALS: RESP 17
[2024-08-21 20:38] LABS: Basophils % (A) 0 %; Eosinophils # (A) 0.1 k/uL (0-0.7); Eosinophils % (A) 1 %; HCT 41.3 % (34.0-46.0); HGB 13.1 gm/dL (11.4-16.0); Lymphocytes # (A) 1.9 k/uL (1.0-4.8); Lymphocytes % (A) 26 %; MCH 29.2 pg (25.0-35.0); MCHC 31.8 g/dL (31.0-37.0); MCV 91.9 fL (80.0-100.0); Monocytes # (A) 0.4 k/uL (0-1.0); Monocytes % (A) 5 %; Neutrophils # (A) 4.7 k/uL (1.3-7.7); Neutrophils % (A) 65 %; Platelet Count 268 k/uL (150-450); RBC 4.49 m/uL (3.80-5.40); RDW 13.4 % (11.5-15.5); WBC 7.2 k/uL (3.8-10.6)
[2024-08-21 23:20] VITALS: BP 128/79; PULSE 57; TEMP 98.4
--- NOTE | 2024-08-23 09:23 | P.DS ---
Providers Date of admission: 08/21/24 16:27 Attending physician: Yuan Kovacs MD Consults: 08/21/24 15:29 Consult Physician Urgent Consulting Provider: Luh Dubose Consult Reason/Comments: hematemesis Do you want consulting provider notified?: Yes 08/21/24 15:51 Consult Physician Urgent Consulting Provider: Abel Nagel Consult Reason/Comments: Hematemesis, suspecting bleeding disorder Do you want consulting provider notified?: Yes Primary care physician: Sky Mcguire Hospital Course: Discharge diagnoses: Hematemesis: History of hematochezia: Patient reported history of easy bleeding, reported history of on and off blood in the stools, frequent and heavy periods. Presented with vomiting with blood. Hemoglobin currently stable Monitor H&H Monitor vitals IV Protonix Ultrasound liver GI consult Hematology consult Patient left AMA 24-year-old female with past medical history significant for GERD presented to ER with a complaint of epigastric abdominal pain and vomiting with bright red blood. Patient stated that she has history of frequently bleeding, denied any nosebleed but admitted to having bleeding from the gums with brushing teeth, also reported on and off blood in the stools and reported heavy and long periods has been seen by BROADCAST TECHNICIAN in the past, currently has depot patch. Patient stated that she has epigastric abdominal pain worse with food intake going on for the last few months. Patient reported frequent episodes of vomiting in the past as well. Patient stated that this time when she vomited she noticed bright red blood in the vomit, also noted some blood clots. Patient denied any history of taking NSAIDs, denied any history of liver disease, denied taking any blood thinners, denied any fever or chills. Patient denied any productive cough, sore throat, chest pain, palpitations, diarrhea, urinary frequency urgency or dysuria. In the ED patient was afebrile, heart rate 66, respiratory rate 20, blood pressure 133/74, saturating 99% on room air. WBCs 5.7, hemoglobin 14.9, MCV 91.9, platelet 283. PT 11.2, INR 1.0, APTT 22.8. CMP was unremarkable except total bilirubin 2.2. Amylase and lipase negative. Patient was admitted to hospital for further evaluation and management. Patient was started on IV Protonix, ultrasound liver was ordered. Hematology and GI was consulted. Later on patient left AMA overnight. PHYSICAL EXAMINATION: Patient left AMA Dictation was produced using [employer] dictation software. please excuse any grammatical, word or spelling errors. Patient Condition at Discharge: Fair Plan - Discharge Summary New Discharge Prescriptions: No Action No Known Home Medications Discharge Medication List No Known Home Medications 08/21/24 [History] Follow up Appointment(s)/Referral(s): Sky Mcguire MD [Primary Care Provider] - 1-2 days Discharge Disposition: LEFT AGAINST MEDICAL ADVICE
== END 2024-08-21 23:29 | disposition left against medical advice (07) ==
LOC: EC 11:52 → 6NMEDSUR 16:27
PROVIDERS: ADMIT Internal Medicine; ATTEND Internal Medicine
DX: K92.0 Hematemesis (principal); K21.9 Gastro-esophageal reflux disease without esophagitis; Z53.29 Procedure and treatment not carried out because of patient's decision for other reasons
CPT/HCPCS: 96376; 96361; 96374; 99285; 36415; 80053; 82150; 83690; 85025; 85610; 85730; 76705; G0378; J2470